=== PATIENT | female | born 1940 | race Caucasian/White ===

== ENCOUNTER 2020-08-13 10:43 | Outpatient (REF) | payer MEDICARE, SELFPAY ==
--- NOTE | 2020-08-13 10:49 | MM_ITS ---
EXAMINATION: BONE DENSITOMETRY CLINICAL INDICATION: Osteoporosis. COMPARISON: Previous BD dated 02/10/2017 and baseline BD dated 05/12/2005. TECHNIQUE: Using a [id number] DXA System (software version: 13.1) manufactured by [employer], dual-energy x-ray absorptiometry was performed of the lumbar spine and left hip. The images are of good technical quality. Summary results are attached. FINDINGS: AP SPINE L1-L4: Current: BMD 1.046 g/cm2, Z-score 1.0, T-score -1.1, osteopenia, 0.3% decrease from previous, 7.9% increase from baseline (<5% change is not significant). Prior: BMD 1.049 g/cm2. Baseline: BMD 0.969 g/cm2. LEFT FEMUR, NECK: Current: BMD 0.786 g/cm2, Z-score 0.4, T-score -1.8, osteopenia. Prior: BMD 0.757 g/cm2. Baseline: BMD 0.757 g/cm2. LEFT FEMUR, TOTAL: Current: BMD 0.782 g/cm2, Z-score 0.3, T-score -1.8, osteopenia, 0.0% change from previous, 3.8% decrease from baseline (<5% change is not significant). Prior: BMD 0.782 g/cm2. Baseline: BMD 0.813 g/cm2. IDENTIFIED RISK FACTORS: Early menopause, height loss, hysterectomy, bilateral oophorectomy. HISTORY OF FRACTURE: None listed. MEDICATIONS: Vitamin D. MM/XR DEXA axial skeleton IMPRESSION: 1. DIAGNOSIS: Osteopenia based on the lowest T-score value of -1.8 in the femur neck and total femur applying World Health Organization criteria. 2. 10-YEAR FRACTURE RISK PREDICTION, FRAX: Major osteoporotic fracture (clinical spine, forearm, hip or shoulder) 12.2%. Hip fracture 3.3%. 3. Treatment Recommendations: NOF guidelines recommend consideration for treatment in postmenopausal women and men age 50 and older presenting with the following: -A hip or vertebral (clinical or morphometric) fracture. -T-score less than or equal to -2.5 at the femoral neck or spine after appropriate evaluation to exclude secondary causes. -Low bone mass at the hip or spine and a 10-year fracture probability by FRAX of greater than or equal to 3% for hip fracture or greater than or equal to 20% for major osteoporotic fracture based on the [place] adapted WHO algorithm. 4. Other Recommendations: All treatment decisions require clinical judgment and consideration of individual patient factors, including patient preferences, comorbidities, previous drug use, risk factors not captured in the FRAX model (e.g. frailty, falls, vitamin D deficiency, increased bone turnover, interval significant decline in bone density) and possible under or overestimation of fracture risk by FRAX. Additional medical evaluation for secondary cause of low bone mineral density may be appropriate. FUTURE SCAN RECOMMENDATION: People with diagnosed cases of osteoporosis or at high risk for fracture should have regular bone mineral density tests. For patients eligible for Medicare, routine testing is allowed once every 2 years. The testing frequency can be increased to one year for patients who have rapidly progressing disease, those who are receiving or discontinuing medical therapy to restore bone mass, or have additional risk factors.
--- NOTE | 2020-08-13 10:49 | MM_ITS ---
EXAMINATION: MM SCREENING DIGITAL BREAST TOMOSYNTHESIS, BILATERAL CLINICAL INFORMATION: Screening. Asymptomatic. The lifetime risk of breast cancer based on the Tyrer-Cuzick Model is under 2%. COMPARISON: Mammography: 07/21/2019, 03/08/2018 TECHNIQUE: Digital breast tomosynthesis is performed in both the craniocaudal and mediolateral oblique views along with computer-aided detection (CAD). Synthesized 2D images are generated from the tomosynthesis. FINDINGS: There are scattered areas of fibroglandular density (ACR BI-RADS breast composition Category b). There are no significant masses, abnormal calcifications, or other abnormalities. There is some fine incidental vascular calcification again seen posterior central left breast as noted previously. The skin contours are smooth. No significant changes. MM/MM tomosynthesis screening BI IMPRESSION: No mammographic evidence of malignancy. ASSESSMENT: BI-RADS 2: Benign RECOMMENDATION: Routine annual mammography screening. This patient's information was entered into a reminder system with a target due date for their next mammogram.
== END 2020-08-13 10:44 | disposition home or self-care (01) ==
LOC: HO.MAMMO 10:43
PROVIDERS: PCP Nurse Practitioner Family; Visit Provider Nurse Practitioner Family
DX: Z12.31 Encounter for screening mammogram for malignant neoplasm of breast (principal); M81.0 Age-related osteoporosis without current pathological fracture; Z78.0 Asymptomatic menopausal state; Z90.710 Acquired absence of both cervix and uterus; Z90.722 Acquired absence of ovaries, bilateral
CPT/HCPCS: 77063; 77067; 77080

== ENCOUNTER 2021-09-03 10:46 | Outpatient (REF) | payer MEDICARE, SELFPAY ==
--- NOTE | ~2021-09-03 | MM_ITS ---
EXAMINATION: MM SCREENING DIGITAL BREAST TOMOSYNTHESIS, BILATERAL CLINICAL INFORMATION: Screening. Asymptomatic. The lifetime risk of breast cancer based on the Tyrer-Cuzick Model is 1.0%. COMPARISON: Mammography: August 13, 2020 and studies dating back to October 23, 2011 TECHNIQUE: Digital breast tomosynthesis is performed in both the craniocaudal and mediolateral oblique views along with computer-aided detection (CAD). Synthesized 2D images are generated from the tomosynthesis. FINDINGS: There are scattered areas of fibroglandular density (ACR BI-RADS breast composition Category b). There are no significant masses, abnormal calcifications, or other abnormalities. MM/MM tomosynthesis screening BI IMPRESSION: There are no significant changes from prior study. ASSESSMENT: BI-RADS 1: Negative RECOMMENDATION: Routine annual mammography screening. This patient's information was entered into a reminder system with a target due date for their next mammogram.
== END 2021-09-03 10:47 | disposition home or self-care (01) ==
LOC: HO.MAMMO 10:46
PROVIDERS: Visit Provider Nurse Practitioner Family
DX: Z12.31 Encounter for screening mammogram for malignant neoplasm of breast (principal)
CPT/HCPCS: 77063; 77067

== ENCOUNTER 2022-06-30 15:49 | Outpatient (REF) | payer MEDICARE, SELFPAY ==
--- NOTE | ~2022-06-30 | XR_ITS ---
EXAMINATION: XR CHEST CLINICAL INFORMATION: Pneumonitis. History of aspiration. COMPARISON: Previous chest x-ray December 2014 TECHNIQUE: 2 views of the chest were obtained. FINDINGS: The cardiac and mediastinal contours are normal. The lungs are clear. There is no pleural effusion or pneumothorax. There are degenerative changes of the spine and mild scoliosis. XR/XR chest 2V IMPRESSION: No evidence of pneumonia.
== END 2022-06-30 15:50 | disposition home or self-care (01) ==
LOC: HO.HMGCX 15:49
PROVIDERS: PCP Nurse Practitioner Family; Visit Provider Internal Medicine
DX: J69.0 Pneumonitis due to inhalation of food and vomit (principal)
CPT/HCPCS: 71046

== ENCOUNTER 2022-10-01 14:07 | Outpatient (REF) | payer MEDICARE, SELFPAY ==
--- NOTE | ~2022-10-01 | MM_ITS ---
EXAMINATION: MM SCREENING DIGITAL BREAST TOMOSYNTHESIS, BILATERAL CLINICAL INFORMATION: Screening. Asymptomatic. The lifetime risk of breast cancer based on the Tyrer-Cuzick Model is 1%. COMPARISON: Mammography: 09/03/2021, 08/13/2020, 07/21/2019 TECHNIQUE: Digital breast tomosynthesis is performed in both the craniocaudal and mediolateral oblique views along with computer-aided detection (CAD). Synthesized 2D images are generated from the tomosynthesis. FINDINGS: There are scattered areas of fibroglandular density (ACR BI-RADS breast composition Category b). There are no significant masses, abnormal calcifications, or other abnormalities. Parenchymal pattern is similar to prior studies. There is no developing density or architectural abnormality. The axilla and skin contours are unremarkable. No significant changes. MM/MM tomosynthesis screening BI IMPRESSION: No mammographic evidence of malignancy. ASSESSMENT: BI-RADS 1: Negative RECOMMENDATION: Routine annual mammography screening. This patient's information was entered into a reminder system with a target due date for their next mammogram.
== END 2022-10-01 14:08 | disposition home or self-care (01) ==
LOC: HO.MAMMO 14:07
PROVIDERS: PCP Nurse Practitioner Family; Visit Provider Nurse Practitioner Family
DX: Z12.31 Encounter for screening mammogram for malignant neoplasm of breast (principal)
CPT/HCPCS: 77063; 77067

== ENCOUNTER 2024-09-05 15:18 | Outpatient (AMB) | payer MEDICARE, SELFPAY ==
[2024-09-05 15:23] VITALS: BP 152/74; PULSE 82; O2SAT 95; BMI 19.9
--- NOTE | 2024-09-05 15:23 | MHC.OFFWIV ---
Intake Vital Signs 09/05/24 15:23 Height 5 ft 7 in Weight 127 lb 4 oz BMI 19.9 BP 152/74 H Blood Pressure Location Rt brachial Position Sitting Pulse 82 Pulse Source Pulse Oximeter Pulse Oximetry (%) 95 Oxygen Delivery Method Room Air Intake Visit Reasons: EP-uti Allergies Iodinated Contrast Media [IVP DYE] Allergy (Unknown, Verified 01/01/23 08:12) HIVES IVP Dye Allergy (Unknown, Uncoded 06/30/22 15:28) Rash IVP dye Allergy (Unknown, Uncoded 06/30/22 15:28) rash, hives HPI EP-uti HPI Details This note is constructed using voice recognition software. While every effort has been made to ensure accuracy, motion picture camera operator errors may have been included. The patient is a 83 year old female who presents to the clinic today with concern for UTI. She notes that last night she started developing some burning with urination, today she started with urinary frequency and urgency. She has had a history of frequent urinary tract infections, which was previously worked with with Urogynecology, and she had a pessary at that time. She has not had a urinary tract she denies any back pain. Review of Systems Const All systems reviewed & are unremarkable except as noted in HPI and below Physical Exam Vital Signs: Last Vital Signs Pulse 82 09/05/24 15:23 BP 152/74 H 09/05/24 15:23 Pulse Ox 95 09/05/24 15:23 Oxygen Delivery Method Room Air 09/05/24 15:23 BMI result Body Mass Index 19.9 Const General: cooperative, healthy appearing, comfortable, no acute distress and alert Orientation/consciousness: patient oriented x3 Limitations: no limitations Resp Effort & Inspection: normal respiratory effort and able to speak in complete sentences Other: Deferred General: Yes no CVA tenderness Back/Spine/Pelvis Back: no CVA tenderness Skin General skin exam: no rashes or lesions noted, elasticity normal and turgor normal Neuro General: patient oriented x3 Psych Appearance: grossly normal Mental Status: mental status grossly normal Speech and movement: Normal speech and movement present Affect: normal affect Results AMB Urinalysis, Automated UA Leukoctes 125 Navi/uL Last Edit by Ramon Garcia CMA on 09/05/24 15:31 UA Nitrite Negative Last Edit by aRmon Garcia CMA on 09/05/24 15:31 UA Urobilinogen 0.2 mg/dL Last Edit by Ramon Garcia CMA on 09/05/24 15:31 UA Protein 0 mg/dL Last Edit by Ramon Garcia CMA on 09/05/24 15:31 UA pH 6.5 Last Edit by Ramon Garcia CMA on 09/05/24 15:31 UA Blood 200 Kenji/uL Last Edit by Ramon Garcia CMA on 09/05/24 15:31 UA Specific [place] 1.010 Last Edit by Ramon Garcia CMA on 09/05/24 15:31 UA Ketone Negative Last Edit by Ramon Garcia CMA on 09/05/24 15:31 UA Bilirubin 0 mg/dL Last Edit by Ramon Garcia CMA on 09/05/24 15:31 UA Glucose 0 mg/dL Last Edit by Ramon Garcia CMA on 09/05/24 15:31 Results Reviewed Results Reviewed: Laboratory Last Values Urine pH (Auto) 6.5 09/05/24 15:31 Specific [place] (Auto) 1.010 09/05/24 15:31 Urine Protein (Auto) 0 mg/dL 09/05/24 15:31 Glucose (UA)(Auto) 0 mg/dL 09/05/24 15:31 Urine Ketones (Auto) Negative 09/05/24 15:31 Urine Blood (Auto) 200 Kenji/uL 09/05/24 15:31 Urine Nitrite (Auto) Negative 09/05/24 15:31 Urine Bilirubin (Auto) 0 mg/dL 09/05/24 15:31 Urine Urobilinogen (Auto) 0.2 mg/dL 09/05/24 15:31 Leukocyte Esterase (Auto) 125 Navi/uL 09/05/24 15:31 Assessment & Plan Assessment & Plan (1) UTI (urinary tract infection): Code(s): N39.0 - Urinary tract infection, site not specified Qualifiers: Urinary tract infection type: acute cystitis Hematuria presence: without hematuria Qualified Code(s): N30.00 - Acute cystitis without hematuria Plan: Supportive measures encouraged and reviewed. Antibiotic sent to requested pharmacy, advised patient to take antibiotics until completed and not to stop if feeling better, unless the patient has side effects. Advised patient to follow up with primary care provider with worsening or failure to resolve. Plan See above for full details and plan. Orders: Orders AMB Urinalysis Automated Today Steffany Cole PA-C Z13.9 - Encounter for screening, unspecified Medications: New nitrofurantoin monohyd/m-cryst 100 mg must administer with a meal/food 100 mg PO Q12H 5 days 10 caps 0RF Stella Rodarte NP Coding Level of Care Code Est Pt Level 3 (25034) Diagnoses Acute cystitis without hematuria N30.00 Urinary tract infection type: acute cystitis Hematuria presence: without hematuria
--- OUTSIDE RECORDS SUMMARY | 2024-09-07 16:19 | XMS_ITS ---
Author Organization [facility] Address [address] [place] [address] Care Team Providers Care Grey Stock Recorder Name Role Phone Nena Wong NP Primary Care Provider Divina Guajardo [phone] REASON FOR VISIT CREDIT REPORTER [facility]WK Entered Encounters Encounter Location Date Provider Diagnosis [facility] [address] [place] [address] 08/03/2023 Divina Desouza Plan Of Treatment No Information Progress Notes * Rashaun CARYOB:1940 (82 yo F)Acc No.[id number]:08/03/2023 Patient:?Poly Cary :1940???Age:82 Y???Sex:Female Address:[address] [place] [id number] * true * Date:? Generated for Printi ng/Faxing/eTransmitting on:?09/07/2024 04:19 PM EST
--- OUTSIDE RECORDS SUMMARY | 2024-09-07 16:19 | XMS_ITS ---
Author Organization [facility] Elise lai [place] Address [address] [place] [address] Care Team Providers Care Suggestion Clerk Name Role Phone Nena Wong NP Primary Care Provider Divina Guajardo Unavailable [phone] Allergies Allergen (clinical drug ingredient) Drug/Non Drug Allergy documented on EMR Reaction Allergy Type Onset Date Status Iodine hives Drug Allergy Active REASON FOR VISIT PCP - 01/2023, Painful Toe(s) Medications Medication SIG (Take, Route, Frequency, Duration) Notes Start Date End Date Status Levothyroxine Sodium 88 MCG Oral for 90 Days Active Losartan Potassium 25 MG Oral for 30 Days Active Vitamin D3 08/03/2023 Active Centrum - as directed Orally 08/03/2023 Active Surfak 08/03/2023 Active Social History Tobacco Use: Social History Observation Description Date Details (start date - stop date) Former Smoker NA - NA Tobacco Use/Smoking Question Answer Notes Are you a: former smoker Additional Findings: Tobacco Non-User Current no n-smoker Alcohol Screen Question Answer Notes Did you have a drink contain ing alcohol in the past year? Yes How often did you have a dri nk containing alcohol in the past year? 2 to 3 times a week (3 points) Points 3 Interpretation Positive Tobacco use other than smoking: Question Answer Notes Are you an other tobacco user? No Problems Problem Type SNOMED Code ICD Code Onset Dates Problem Status W/U Status Risk Notes Problem [id number] Hammer toe of right foot (M20.41) Active confirmed Vital Signs Height 5 ft 5 in in 08/25/2023 Weight 123 lbs 08/25/2023 BMI 20.47 kg/m2 08/25/2023 Encounters Encounter Location Date Provider Diagnosis [facility] [address] [place] [address] 08/25/2023 Divina Desouza Hammer toe of right foot M20.41 ; Toe pain, right M79.674 and Markle of toe L84 Assessments Encounter Date Diagnosis (ICD Code) Assessment Notes Treatment Notes Treatment Clinical Notes Section Notes 08/25/2023 Hammer toe of right foot (ICD-10 - M20.41) 08/25/2023 Toe pain, right (ICD-10 - M79.674) 08/25/2023 Markle of toe (ICD-10 - L84) Plan Of Treatment Pending Test Test Name Order Date X ray : Foot, right 3V 08/25/2023 Next Appt Details Follow Up: prn, Reason: Procedure Notes * Category Sub-Category Detail Notes Keratoma Treatment Parring or Cutting o f Benign Hyperkeratotic Lesion(s) ( 1 Lesion ) - The Benign hyperkeratotic lesion, as described above was pared, and/or cut utilizing a sterile 15 blade, tissue nippers, and/or dremel Progress Notes * Poly CARY RDOB:[birth year] (82 yo F)Acc No.[id number]:08/25/2023 Progress Notes Patient:?Poly Cary Provider:?Divina Desouza DPM :1940???Age:82 Y???Sex:Female D ate:08/25/2023 Address:[address] [place], [place] [id number] Pcp:Nena Wong NP Subjective: * Chief Complaints: * ???PCP - ainful Toe( s) * HPI: ???Toe pain:?Nature:?tenderness.?Location:?Right foot 5th toe.?Duration:?several months.?Course:?worse.?Aggrevated by:?any pressure, shoes.?Treatments:?change in shoes bracing/splinting/padding.? * ROS:?General/Constitutional:?Nausea?denies.?Vomiting?denies.?Hunger Thirst?denies.?Loss appetite?denies.?Chills?denies.?Fatigue?denies.?Fever?denies.?Night Sweats?denies.?Unexplained weight loss?denies.?Unexplained weight gain?denies.?HEENTM:?Dentures?admits.?Dizziness?denies.?Glasses/contacts?admits.?Retinopathy?de nies.?Blurred/double vision?denies.?TMJ?denies.?Discharge/drainage?denies.?Implants?denies.?Sore throat?denies.?Dental implants?denies.?Hard of hearing ?denies.?Difficulty chewing/swallowing/speaking?denies.?Nose bleeds?denies.?Sore mouth?denies.?Respiratory:?On Oxygen?denies.?Pneumonia/pleurisy?denies.?Bronchitis?admits.?Emphysema?denies.?C oughing?denies.?Cough blood?denies.?Shortness of breath?denies.?Wheezing?denies.?Cardiovascular:?Pacemaker?denies.?MVP?denies.?WPW?denies.?CHF?denies.?Heart attack?denies.?Septal defect?denies.?Rapid beat?denies.?Chest pain ?denies.?Atrial Fib.?denies.?Murmur/Palpitations?denies.?Gastrointestinal:?Hemorrhoids?denies.?Stomach/Abdominal pain?denies.?Dark blood stool?denies.?Irritable bowel ?denies.?Constipation?denies.?Diarrhea?denies.?Hematology:?Swelling?denies.?Clots?denies.?Varicose Veins?denies.?Bruising?denies.?Bleeding problem?denies.?Genitourinary:?Blood urine?denies.?Frequent/Painfu/urination/bladder control?denies.?Kidney stones?denies.?Infection (UTI)?denies.?Nephropathy?denies.?sex trans dis (STD)?denies.?Prostate?denies.?Musculoskeletal:?Hammertoes?denies.?Bunions?denies.?Back Pain?denies.?Muscle Cramps/ Resting?denies.?Muscle cramps / walking?denies.?Generalized aches and pains?denies.?Weakness?denies.?Integ.:?Recinos?denies.?Scars?denies.?Corns/calluses?admits.?Ingrown nails?denies.?Painful nails?denies.?Open Sores?denies.?Rashes?denies.?Neurologic:?Difficulty sleeping?denies.?Brain disorder?denies.?Numbness?denies.?Balance trouble?denies.?Confusion?denies.?Fainting/blackouts?denies.?Tingling?denies.?Tr emors?denies.? * Medical History:? * Surgical History:? 1972appendectomy 1974oopherectomy 1974hysterectomy, total 1979hemorrhoidectomy 1997cataract surgery 2021 * Hospitalization/Major Diagno stic Procedure:?Denies Past Hospitalization * Family History:?Mother: dece ased.?Father: , diagnosed with Unspecified heart disease.?Maternal Grand Father: diagnosed with Other malignant neoplasm of unspecified site.? * Social History:?Tobacco Use:?Tobacco Use/Smoking?Are you a:?former smoker ?Additional Findings: Tobacco Non-User?Current non-smoker ?Tobacco use other than smoking?Are you an other tobacco user??No ???Drugs/Alcohol:?Drugs?Have you used drugs other than those for medical reasons in the past 12 months??No ?Alcohol Screen?Did you have a drink containing alcohol in the past year??Yes ?How often did you have a drink containing alcohol in the past year??2 to 3 times a week (3 points) ?Points?3 ?Interpretation?Positive ???Miscellaneous:?Caffeine: yes. ?Children: yes, 3. ?Exercise: yes, aerobics, walking, golf. ?Marital status: . 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 * Medications:?TakingLevothyro xine Sodium 88 MCG Tablet Oral Losartan Potassium 25 MG Tablet Oral Vitamin D3 Centrum - Liquid as directed Orally Surfak Medication List reviewed and reconciled with the patientTaking Levothyroxine Sodium 88 MCG Tablet Oral Taking Losartan Potassium 25 MG Tablet Oral Taking Vitamin D3 Taking Centrum - Liquid as directed Orally Taking Surfak Medication List reviewed and reconciled with the patient * Allergies:?Iodine: hivesyes[ Allergies Verified] Objective: * Vitals:?Ht: 5 ft 5 in, Wt: 1 23, BMI: 20.47, Shoe size: 9, Ht-cm: 165.1 cm, Wt- k.79 kg. * Examination: ???General Examination: ?GENERAL APPEARANCE:?Reveals a pleasant, alert, well-nourished, well- developed, well hydrated individual, who demonstrates proper attention to hygiene/body habitus, and is in no acute distress, Pt serves as own?historian for office visit today.?ORIENTED:?person, place, and time.?Neurological: ?SENSORY:?Neurological exam reveals intact sensorium, pain sensation normal, vibration sensation intact, pinprick sensation is normal in the lower extremities, Pt denies, anesthesia, burning, paresthesia, tingling, B/L.?DEEP TENDON REFLEXES:?Achilles, 2/4, B/L.?Vascular: ?DP PULSES:?3/4, B/L.?PT PULSES:?3/4, B/L.?CAPILLARY FILL TIME:?immediate, all digits, B/L.?SKIN TEMPERTURE GRADIENT OF THE LOWER EXTERMITIES:?warm to cool, proximal to distal, B/L.?HAIR GROWTH/TEXTURE/ELASTICITY/TURGOR:?normal, B/L.?PIGMENTATION:?normal, B/L.?EDEMA:?absent, B/L.?Dermatologic: ?SKIN FINDINGS:? Skin exam reveals Keratotic lesion(s) located at Medial DIPJ T9.?Orthopedic: ?MUSCLE STRENGTH:?5/5 all groups in a symmetrical fashion , B/L.?DIGITAL DEFORMITIES:? Digital contracture, PIPJ, 2-5 B/L, incompl- reducible with WB, or to push-up test, no over, nor underlapping Adducto-varus deformity noted T9.?FOOTWEAR:? shoe gear properties exacerbate patients foot/toe deformity.?X-Rays - IMAGING REPORT: ?Clinical Indication(s):? Evaluate Biomechanical Deformity.?Views:? 3 views of Foot, AP, LO, MO, RIGHT.?Findings:? normal bone and soft tissue density consistent for patients age and sex.?Digits:? show asymmetrical joint space narrowing at the PIPJ consistent with clinical finding of hammertoe deformity.?Fracture:? Negative fractures identified.? Assessment: * Assessment: 1.?Hammer toe of right foot - M20.41 (Primary), Dx New problem, Prognosis Uncertain (4)?2.?Toe pain, right - M79.674?3.?Markle of toe - L84? Plan: * Treatment: * Procedures:?Keratoma Treatment:?Parring or Cutting of Benign Hyperkeratotic Lesion(s)?( 1 Lesion ) - The Benign hyperkeratotic lesion, as described above was pared, and/or cut utilizing a sterile 15 blade, tissue nippers, and/or dremel.? * Imaging:? * ?Imaging: X ray : Foot, right 3V * Procedure Codes:?24139 X-RAY EXAM OF RIGHT FOOT 3V, Modifiers: 26 , RT * Preventive Medicine:? ??Counseling:?Discussion:?-04: Office or other outpatient visit for the evaluation and management of a new patient, which required a medically appropriate history and/or examination and MODERATE level of DECISION MAKING for: 1 OR MORE CHRONIC PROBLEM(S) THATS WORSENING, 2 STABLE CHRONIC PROBLEMS, A NEWLY DIAGNOSED PROBLEM WITH UNCERTAIN PROGNOSIS, AN ACUTE COMPLICATED INJURY WITH MULTIPLE TREATMENT OPTIONS, OR AN ACUTE PROBLEM WITH ACCOMPANYING SYSTEMIC SYMPTOMS, THAT POSE(S) A MODERATE RISK OF MORBIDITY. THIS CONDITION MAY ALSO INCLUDE RX DRUG MANAGEMENT, OR A DECISON FOR MINOR SURGERY. The visit on the day of the encounter encompassed interpreting the data and educating the patient as to the nature of their condition, treatment options available according to their individual PMH, meds, allergies, and overall health/living conditions, as well as any potential risks or complications that may occur from a failure to adhere to, and participate in, the recommended course of therapy. The discussion included a complete verbal, and/or written explanation of the examination results, any x-rays taken, the proposed diagnosis, and outline of the treatment plan. A schedule for future care needs was also explained. The patient verbalized an understanding of the instructions at this time and agreed to be an active participant in their treatment. If the patient should think of any questions or concerns after the visit, I have encouraged the patient to call the office.?Digital Surgery:?Digital surgery was discussed with the patient, including the risks of surgery(below), vs not having surgery (persistent pain, deformity, risk for skin ulceration/infection, loss of toe), the potential surg complications, the anesthesia, and the usual post-op course. No guarentees were given. We discussed the potential procedure complications including, but not limited to: pain, swelling, bleeding, scarring, numbness, infection, delayed/non healing, floppy/unstable/shorthened toe, recurrence, failure of the procedure, overcorrection leading to plantarflexed/downward positioned toe, recurrence, need for further surgery, as well as the possibility for loss of the toe itself. We discussed the use of local anesthesia, and the usual post-op course for healing. No guarentees were given. The patient verbally indicated a full understanding of the above conversation, and any other of their questions were answered to their satisfaction. Alternatives to the procedure were also discussed, including conservative care. I also discussed the usual post-operative course and gave no guarantees regarding outcome.?Digital Treatment:?HT- I explained to the patient the possible etiologies of Hammertoes, including genetics/foot type/shoegear/activity level/exercise routine and the risks/benefits of all the different treatment options for their pain including: No treatment at all, Rest, Ice, New/supportive/wider/deeper Shoegear, Digital Padding/Strapping/Taping/Bracing/Gel protective sleeves, Foot/Ankle AFO Bracing, Stretching exercises, Deep Tissue Massage, Arch support/shoe inserts with splay metatarsal padding, and Custom orthoses. I insisted that any digital devices be removed daily and not worn overnight for safety. The patient is to carefully examine the toes daily for any skin irritation while using any splinting or padding device. The advantages and disadvantages of each option were discussed and the patients questions re: shoegear, padding, custom vs prefabricated inserts, activity level, and consistency in home treatment regimens for optimal success were answered to their verbally confirmed satisfaction.?Shoe Gear Counseling:?The patient and I reviewed the types of shoes they should be wearing. My recommendation included obtaining a well-fitted shoe with a good supportive, non-foldable nor twistable sole, plenty of toe/room for the forefoot, and proper arch support. Based on todays examination, I recommended the patient look for new shoes, by having their feet professionally measured. We discussed that generally the best time of the day for a shoe fitting is the afternoon. Different shoes types and brands to best match the patients occupation and vocation were discussed. Specific brand selection will be up to the patient, their individual foot condition/deformities, and fit. The patient and I reviewed the standard new shoe break in period by wearing them for a few hours a day while checking for redness or sores as wear time is increased. The patient verbally confirmed to understanding the information discussed.?X-rays:?Discussed and reviewed the X-rays with the patient. We discussed how the findings relate to the patients symptoms/complaints. Answered any and all questions..? * Follow Up:?prn * Images: * Sign off status: Completed true * Provider:?Divina Desouza DPM Date:? Generated for Grace vela/Quincy/Iraj on:?09/07/2024 04:18 PM EST History and Physical Notes * HPI (History of Present Illness) Category Sub-Category Detail Notes Category Not es Toe pain Nature: tenderness Location: Right foot 5th toe Duration: several months Course: worse Aggravated by: any pressure, shoes Treatments: change in shoes brac ing/splinting/padding Examination Category Sub-Category Detail Notes Category Not es Neurological SENSORY: Neurological exa m reveals intact sensorium, pain sensation normal, vibration sensation intact, pinprick sensation is normal in the lower extremities, Pt denies, anesthesia, burning, paresthesia, tingling, B/L DEEP TENDON REFLEXES: Achilles, 2/4, B/L Dermatologic SKIN FINDINGS: Skin exam reveal s Keratotic lesion(s) located at Medial DIPJ T9 Orthopedic FOOTWEAR: shoe gear proper ties exacerbate patients foot/toe deformity DIGITAL DEFORMITIES: Digital contracture , PIPJ, 2-5 B/L, incompl-reducible with WB, or to push-up test, no over, nor underlapping Adducto-varus deformity noted T9 MUSCLE STRENGTH: 5/5 all groups in a symmetrical fashion , B/L General Examination GENERAL APPEARANCE: Reveals a pleasant, alert, well- nourished, well-developed, well hydrated individual, who demonstrates proper attention to hygiene/body habitus, and is in no acute distress, Pt serves as own historian for office visit today ORIENTED: person, place, and t shannan Vascular DP PULSES(B): 3/4, B/L PT PULSES(B): 3/4, B/L CAPILLARY FILL TIME: immediate, all digi ts, B/L TEMPERTURE GRADIENT(C): warm to cool, pr oximal to distal, B/L TROPHIC CONDITION-TEXTURE/ELASTICITY/TURGOR/HAIR GROWTH(B): normal, B/L EDEMA(C): absent, B/L PIGMENTATION: normal, B/L X-Rays - IMAGING REPORT Findings: normal b one and soft tissue density consistent for patients age and sex Fracture: Negative fractures i dentified Digits: show asymmetrical naila int space narrowing at the PIPJ consistent with clinical finding of hammertoe deformity Views: 3 views of Foot, AP, LO, MO, RIGHT Clinical Indication(s): Evaluate Biomech anical Deformity
--- OUTSIDE RECORDS SUMMARY | 2024-09-07 16:19 | XMS_ITS | Patient Health Record ---
Author Organization [facility] Elise lai [place] Address [address] [place] [address] Care Team Providers Care Machine Builder Name Role Phone Nena Wong NP Primary Care Provider Divina Guajardo Unavailable [phone] Allergies Allergen (clinical drug ingredient) Drug/Non Drug Allergy documented on EMR Reaction Allergy Type Onset Date Status Iodine hives Drug Allergy Active Reason For Referral No Information Medications Medication SIG (Take, Route, Frequency, Duration) [...] Problem Status W/U Status Risk Notes Problem [id number] Hammer toe of right foot (M20.41) Active confirmed Plan Of Treatment Pending Test Test Name Order Date X ray : Foot, right 3V 08/25/2023 Insurance Providers Payer Name Payer Address Payer Phone Subscriber Number Group Number Insured Name Patient Relationship to Insured Coverage Start Date Coverage End Date Medicare National Gov[employer] [address] [place] [address] [id number] Poly Cary Self - patient is the insured [employer] [address] [place] [address] [id number] Poly Cary Self - patient is the insured Medical (General) History Medical History History ICD Code Cataracts covid-19 High blood pressure thyroid Measles Chicken pox Transfusions Surgical History Surgery Date(Month/Year) 1971 appendectomy 1973 oopherectomy 1973 hysterectomy, total 1978 hemorrhoidectomy 1997 cataract surgery 2021
== END 2024-09-05 15:55 | disposition home or self-care (01) ==
PROVIDERS: Visit Provider Registered Nurse
DX: Z13.9 Encounter for screening, unspecified (principal); N30.00 Acute cystitis without hematuria

== ENCOUNTER 2024-09-09 11:39 | Outpatient (AMB) | payer MEDICARE, SELFPAY ==
--- OUTSIDE RECORDS SUMMARY | 2024-09-09 11:42 | XMS_ITS ---
Author Organization [facility] Address [address] [place] [address] Care Team Providers Care Onion Tier Name Role Phone Nena Wong NP Primary Care Provider Divina Guajardo [phone] REASON FOR VISIT QUARTZ MINER BLASTING PPWK Entered Encounters Encounter Location Date Provider Diagnosis [facility] [address] [place] [address] 08/03/2023 Divina Desouza Plan Of Treatment No Information Progress Notes * Rashaun CARYOB:1940 (82 yo F)Acc No.[id number]:08/03/2023 Patient:?Poly Cary :1940???Age:82 Y???Sex:Female Address:[address] [place] [address] * true * Date:? Generated for Printi ng/Faxing/eTransmitting on:?09/09/2024 11:42 AM EST
--- OUTSIDE RECORDS SUMMARY | 2024-09-09 11:42 | XMS_ITS ---
Author Organization [facility] [place] Address [address] [place] [address] Care Team Providers Care Communication Instructor Name Role Phone Nena Wong NP Primary Care Provider Divina Guajardo Unavailable [phone] Allergies Allergen (clinical drug ingredient) Drug/Non Drug [...] Problem Status W/U Status Risk Notes Problem [id number] Hammer toe of right foot (M20.41) Active confirmed Vital Signs Height 5 ft 5 in in 08/25/2023 Weight 123 lbs 08/25/2023 BMI 20.47 kg/m2 08/25/2023 Encounters Encounter Location Date Provider Diagnosis [facility] [place] [address] [place] [address] 08/25/2023 Divina Desouza Hammer toe of right foot M20.41 ; Toe pain, right M79.674 and [place] of toe L84 Assessments Encounter Date Diagnosis (ICD Code) Assessment Notes Treatment Notes Treatment Clinical Notes Section Notes 08/25/2023 Hammer toe of right foot (ICD-10 - M20.41) 08/25/2023 Toe pain, right (ICD-10 - M79.674) 08/25/2023 [place] of toe (ICD-10 - L84) Plan Of [...] Poly CARY RDOB:[birth year] (82 yo F)Acc No.[id number]:08/25/2023 Progress Notes Patient:?Poly Cary Provider:?Divina Desouza DPM :1940???Age:82 Y???Sex:Female D ate:08/25/2023 Address:[address] [place], [place] [id number] Pcp:Nena Wong NP Subjective: * Chief Complaints: [...] problem, Prognosis Uncertain (4)?2.?Toe pain, right - M79.674?3.?[place] of toe - L84? Plan: * Treatment: * Procedures:?Keratoma Treatment:?Parring or Cutting of Benign Hyperkeratotic Lesion(s)?( 1 Lesion ) - The Benign hyperkeratotic lesion, as described above was pared, and/or cut utilizing a sterile 15 blade, tissue nippers, and/or dremel.? * Imaging:? * ?Imaging: X ray : Foot, right 3V * Procedure Codes:?76306 X-RAY EXAM OF RIGHT FOOT 3V, Modifiers: [...] Desouza DPM Date:? Generated for Grace vela/Quincy/Iraj on:?09/09/2024 11:42 AM EST History and Physical Notes * HPI [...]
--- OUTSIDE RECORDS SUMMARY | 2024-09-09 11:43 | XMS_ITS | Patient Health Record ---
Author Organization [facility] Elise lai LiraJ[place] Address [address] [place] [address] Care Team Providers Care Steward/Stewardess Third Class Name Role Phone Nena Wong NP Primary Care Provider Divina Guajardo Unavailable [phone] Allergies Allergen (clinical drug ingredient) Drug/Non Drug [...] Problem Status W/U Status Risk Notes Problem [id number] Hammer toe of right foot (M20.41) Active confirmed Plan Of Treatment Pending Test Test Name Order Date X ray : Foot, right 3V 08/25/2023 Insurance Providers Payer Name Payer Address Payer Phone Subscriber Number Group Number Insured Name Patient Relationship to Insured Coverage Start Date Coverage End Date Medicare National Govt Sv[employer] [address] [place] [address] [id number] Poly Cary Self - patient is the insured [employer] [address] [place] [address] [id number] Poly Cary Self - patient is the insured Medical (General) History Medical History History ICD Code Cataracts covid-19 High blood pressure thyroid Measles Chicken pox Transfusions Surgical History Surgery Date(Month/Year) 1971 appendectomy 1973 oopherectomy 1973 hysterectomy, total 1978 hemorrhoidectomy 1997 cataract surgery 2021
--- NOTE | 2024-09-09 11:44 | AM.OFFWIN_ITS ---
Intake Vital Signs 09/09/24 11:46 Weight 127 lb BP 138/90 H Blood Pressure Location Lt brachial Position Sitting Pulse 84 Pulse Source Pulse Oximeter Temp 97.6 F Temp Source Oral Pulse Oximetry (%) 94 Oxygen Delivery Method Room Air Intake Visit Reasons: EP-uti Intake Note: Patient here because she is still having burning when urinating since thursday, she was put on nitro and has one more pill left and is feeling 90% better. Patient Tobacco Use Status: Never used Tobacco Allergies Iodinated Contrast Media [IVP DYE] Allergy (Unknown, Verified 09/09/24 11:45) HIVES IVP Dye Allergy (Unknown, Uncoded 09/09/24 11:45) Rash IVP dye Allergy (Unknown, Uncoded 09/09/24 11:45) rash, hives Do you need a note to return to daycare/school/sports/work: No HPI HPI Comments History of Present Illness Details History of Present Illness The patient is an 83-year-old female presenting with symptoms consistent with a urinary tract infection. She reports a significant improvement, approximately 90%, with the current antibiotic regimen of nitrofurantoin, although she continues to experience a notable burning sensation. She denies urinary frequency, urgency, or incontinence. Her urinary symptoms have persisted despite current treatment, prompting concern about its adequacy. Her previous urine culture showed over 100,000 colony-forming units of Escherichia coli, yet the current antibiotic choice, nitrofurantoin, is not the optimal therapy based on sensitivity profiles. She also has a history of hemorrhoids, managed surgically, and takes care with hygiene practices using a bidet. The patient is concerned about a recurrence over the weekend as she is nearing the end of her prescription. Physical Exam General: Cooperative, healthy appearing, comfortable, no acute distress and well developed Orientation: Patient oriented x3 Limitations: No limitations Head: Normal to inspection Ears: Hearing grossly normal bilaterally Nose: Normal external nose present Face and sinus: Normal facial exam Eyes: Appearance normal, both eyes and all related structures Neck: Normal visual inspection and Yes full ROM Respiratory: Normal respiratory effort and able to speak in complete sentences. Skin: No rashes or lesions noted Neuro: Patient oriented x3 Extremities: Normal to inspection [facility] Social History Patient Tobacco Use Status: Never used Tobacco Physical Exam Vital Signs: Last Vital Signs Temp 97.6 F 09/09/24 11:46 Pulse 84 09/09/24 11:46 BP 138/90 H 09/09/24 11:46 Pulse Ox 94 09/09/24 11:46 Oxygen Delivery Method Room Air 09/09/24 11:46 Results AMB Urinalysis, Automated UA Leukoctes 70 Navi/uL Last Edit by Ramon Garcia CMA on 09/09/24 12:04 UA Nitrite Positive Last Edit by Ramon Garcia CMA on 09/09/24 12:04 UA Urobilinogen 1 mg/dL Last Edit by Ramon Garcia CMA on 09/09/24 12:0 4 UA Protein 0 mg/dL Last Edit by Ramon Garcia CMA on 09/09/24 12:04 UA pH 6.0 Last Edit by Ramon Garcia CMA on 09/09/24 12:04 UA Blood 80 Kenji/uL Last Edit by Ramon Garcia CMA on 09/09/24 12:04 UA Specific [place] 1.015 Last Edit by Ramon Garcia CMA on 09/09/24 12:04 UA Ketone Negative Last Edit by Ramon Garcia CMA on 09/09/24 12:04 UA Bilirubin 1 mg/dL Last Edit by Ramon Garcia CMA on 09/09/24 12:04 UA Glucose 0 mg/dL Last Edit by Ramon Garcia CMA on 09/09/24 12:04 Results Reviewed Results Reviewed: Laboratory Last Values Urine pH (Auto) 6.0 09/09/24 12:03 Specific [place] (Auto) 1.015 09/09/24 12:03 Urine Protein (Auto) 0 mg/dL 09/09/24 12:03 Glucose (UA)(Auto) 0 mg/dL 09/09/24 12:03 Urine Ketones (Auto) Negative 09/09/24 12:03 Urine Blood (Auto) 80 Kenji/uL 09/09/24 12:03 Urine Nitrite (Auto) Positive 09/09/24 12:03 Urine Bilirubin (Auto) 1 mg/dL 09/09/24 12:03 Urine Urobilinogen (Auto) 1 mg/dL 12/13/24 12:03 Leukocyte Esterase (Auto) 70 Navi/uL 09/09/24 12:03 Assessment & Plan Assessment & Plan (1) UTI (urinary tract infection): Code(s): N39.0 - Urinary tract infection, site not specified Qualifiers: Urinary tract infection type: acute cystitis Hematuria presence: with hematuria Qualified Code(s): N30.01 - Acute cystitis with hematuria Plan: Plan - UA 1+ leuk est, + nitrites and 2+ blood. - Prescribed an additional five-day course of nitrofurantoin, advising continuation only if symptoms persist beyond two to three days, not exceeding seven days in total usage. - Discussed alternative antibiotics, noting nitrofurantoin remains appropriate d ue to sensitivity despite its lower ranking on sensitivity testing. - Reassurance given based on symptom improvement and therapeutic plan. Further cultures may not be pursued unless symptoms worsening or recurrence. - Patient counseled on completing two to three additional days of current antibiotic therapy and reserves for extended use if necessary. Patient was informed and verbally consented to the use of an ambient scribe for clinic note documentation during this visit. Orders: Orders AMB Urinalysis Automated Today Z13.9 - Encounter for screening, unspecified Medications: New nitrofurantoin monohyd/m-cryst 100 mg (Macrobid) must administer with a meal/food 100 mg PO Q12H 10 caps 0RF 5 days Coding Level of Care Code Est Pt Level 3 (32679) Diagnoses Acute cystitis with hematuria N30.01 Urinary tract infection type: acute cystitis Hematuria presence: with hematuria
[2024-09-09 11:46] VITALS: BP 138/90; PULSE 84; TEMP 36.4; O2SAT 94
== END 2024-09-09 12:30 | disposition home or self-care (01) ==
PROVIDERS: Visit Provider Physician Assistant
DX: N30.01 Acute cystitis with hematuria (principal); Z13.9 Encounter for screening, unspecified

== ENCOUNTER → 2024-09-09 11:39 | Outpatient (BNVA) | payer MEDICARE, SELFPAY | PROVIDERS: Visit Provider Physician Assistant | DX: N30.01 Acute cystitis with hematuria (principal) | CPT/HCPCS: 81003; 99212 ==

== ENCOUNTER 2024-09-27 08:02 | Outpatient (AMB) | payer MEDICARE, SELFPAY ==
--- OUTSIDE RECORDS SUMMARY | 2024-09-27 08:03 | XMS_ITS ---
Author Organization [facility] Address [address] [place] [address] Care Team Providers Care Delineator Name Role Phone Nena Wong NP Primary Care Provider Divina Guajardo [phone] REASON FOR VISIT TEST TECH PPWK Entered Encounters Encounter Location Date Provider [facility] [address] [place] [address] 08/03/2023 Divina Desouza Plan Of Treatment No Information Progress Notes * Rashaun CARYOB:1940 (82 yo F)Acc No.[id number]:08/03/2023 Patient:?Poly Cary :1940???Age:82 Y???Sex:Female Address:[address] [place] [address] * true * Date:? Generated for Printi ng/Faxing/eTransmitting on:?09/27/2024 08:03 AM EST
--- OUTSIDE RECORDS SUMMARY | 2024-09-27 08:03 | XMS_ITS | Patient Health Record ---
Author Organization [facility] Elise lai LiraJey Address [address] [place] [address] Care Team Providers Care Mobility Architect Manager Name Role Phone Nena Wong NP Primary Care Provider Divina Guajardo Unavailable [phone] Allergies Allergen (clinical drug ingredient) Drug/Non Drug [...] Problem Status W/U Status Risk Notes Problem [id number] Hammer toe of right foot (M20.41) Active confirmed Plan Of Treatment Pending Test Test Name Order Date X ray : Foot, right 3V 08/25/2023 Insurance Providers Payer Name Payer Address Payer Phone Subscriber Number Group Number Insured Name Patient Relationship to Insured Coverage Start Date Coverage End Date Medicare National Govt Svcs Inc [address] [place] [address] [id number] Poly Cary Self - patient is the insured [employer] [address] [place] [address] [phone] [id number] Poly Cary Self - patient is the insured Medical (General) History Medical History History ICD Code Cataracts covid-19 High blood pressure thyroid Measles Chicken pox Transfusions Surgical History Surgery Date(Month/Year) 1971 appendectomy 1973 oopherectomy 1973 hysterectomy, total 1978 hemorrhoidectomy 1997 cataract surgery 2021
--- OUTSIDE RECORDS SUMMARY | 2024-09-27 08:03 | XMS_ITS ---
Author Organization [facility]i [facility] Address [address] [place] [address] Care Team Providers Care Dump Truck Driver Off Highway Name Role Phone Nena Wong NP Primary Care Provider Divina Guajardo Unavailable [phone] Allergies Allergen (clinical drug ingredient) Drug/Non Drug [...] Problem Status W/U Status Risk Notes Problem [id number] Hammer toe of right foot (M20.41) Active confirmed Vital Signs Height 5 ft 5 in in 08/25/2023 Weight 123 lbs 08/25/2023 BMI 20.47 kg/m2 08/25/2023 Encounters Encounter Location Date Provider Diagnosis [facility] [address] [place] [address] 08/25/2023 Divina Desouza Hammer toe of right foot M20.41 ; Toe pain, right M79.674 and [place] of toe L84 Assessments Encounter Date Diagnosis (ICD Code) Assessment Notes Treatment Notes Treatment Clinical Notes Section Notes 08/25/2023 Hammer toe of right foot (ICD-10 - M20.41) 08/25/2023 Toe pain, right (ICD-10 - M79.674) 08/25/2023 [place] of toe (ICD-10 - L84) Plan Of [...] Poly CARY RDOB:[birth year] (82 yo F)Acc No.[id number]:08/25/2023 Progress Notes Patient:?Poly Cary Provider:?Divina Desouza DPM :1940???Age:82 Y???Sex:Female D ate:08/25/2023 Address:[address] [place], [place] [id number] Pcp:Nena Wong NP Subjective: * Chief Complaints: [...] problem, Prognosis Uncertain (4)?2.?Toe pain, right - M79.674?3.?[place] of toe - L84? Plan: * Treatment: * Procedures:?Keratoma Treatment:?Parring or Cutting of Benign Hyperkeratotic Lesion(s)?( 1 Lesion ) - The Benign hyperkeratotic lesion, as described above was pared, and/or cut utilizing a sterile 15 blade, tissue nippers, and/or dremel.? * Imaging:? * ?Imaging: X ray : Foot, right 3V * Procedure Codes:?20201 X-RAY EXAM OF RIGHT FOOT 3V, Modifiers: [...] Desouza DPM Date:? Generated for Grace vela/Quincy/Iraj on:?09/27/2024 08:03 AM EST History and Physical Notes * [...] person, place, and t shannan V[facility] DP PULSES (B): 3/4, B/L PT PULSES (B): 3/4, B/L CAPILLARY FILL TIME: immediate, all digi ts, B/L TEMPERTURE GRADIENT (C): warm to cool, p roximal to distal, B/L TROPHIC CONDITION-TEXTURE/ELASTICITY/TURGOR/HAIR GROWTH (B): normal, B/L EDEMA (C): absent, B/L PIGMENTATION: normal, B/L X-Rays - [...]
[2024-09-27 08:09] VITALS: BP 130/100; PULSE 78; TEMP 36.7; O2SAT 98
--- NOTE | 2024-09-27 08:09 | AM.OFFWIN_ITS ---
Intake Vital Signs 09/27/24 08:09 Weight 125 lb 7 oz BP 130/100 H Blood Pressure Location Lt brachial Position Sitting Pulse 78 Pulse Source Pulse Oximeter Temp 98.0 F Temp Source Oral Pulse Oximetry (%) 98 Oxygen Delivery Method Room Air Intake Visit Reasons: EP-severe cough Intake Note: Patient here for cough that has been present for about 5 days and UTI that has not gone away. Patient Tobacco Use Status: Never used Tobacco Allergies Iodinated Contrast Media [IVP DYE] Allergy (Unknown, Verified 09/27/24 08:16) HIVES IVP Dye Allergy (Unknown, Uncoded 09/27/24 08:16) Rash IVP dye Allergy (Unknown, Uncoded 09/27/24 08:16) rash, hives Do you need a note to return to daycare/school/sports/work: No HPI HPI Comments History of Present Illness Details This is an 83-year-old female with a past medical history of hypertension and hypothyroidism presenting for evaluation of a cough that she has had for the past 5 days which is worse at nighttime. Patient also has been seen twice in August for management of an acute urinary tract infection and has taken Macrobid x5 days over 2 courses. Patient states that this area has returned however her urinary frequency has improved. Patient denies having any fevers, chills, ear pain, sore throat, chest pain, abdominal pain or vaginal discharge. [facility] Social History Patient Tobacco Use Status: Never used Tobacco Review of Systems Const All systems reviewed & are unremarkable except as noted in HPI and below Denies chills and Denies fever(s) Eyes Reports no additional complaints ENT Reports as per HPI, Denies otalgia and Denies sore throat Card Denies chest pain, Denies rapid heart rate and Denies dyspnea Resp Reports no additional complaints, Reports cough, Denies dyspnea and Denies wheezing GI Reports as per HPI and Denies abdominal pain Reports as per HPI, Reports dysuria, Denies urinary incontinence, Denies urinary urgency and Denies vaginal discharge Musc Reports as per HPI Skin/Breast Reports system reviewed and no additional complaints, except as documented Neuro Reports as per HPI Psych Reports as per HPI Aller/Immun Reports no additional complaints and Denies wheezing Physical Exam Vital Signs: Last Vital Signs Temp 98.0 F 09/27/24 08:09 Pulse 78 09/27/24 08:09 BP 130/100 H 09/27/24 08:09 Pulse Ox 98 09/27/24 08:09 Oxygen Delivery Method Room Air 09/27/24 08:09 Patient is afebrile. Const General: cooperative, healthy appearing, comfortable, no acute distress, well developed, alert, awake and Physically active Nutritional Appearance: average body habitus Orientation/consciousness: patient oriented x3 Limitations: no limitations HEENT Head: Yes normal to inspection Ears: hearing grossly normal bilaterally, TM's normal bilaterally and EAC's normal General nose exam: Normal external nose present Face and sinus: Yes normal facial exam Mouth: Normal oral and palatal mucosa present and moist mucous membranes Throat: Yes posterior oropharynx normal (There is no edema, erythema or exudates of the posterior oropharynx.) and Yes postnasal drainage Eyes General: appearance normal, both eyes and all related structures Resp Effort & Inspection: normal respiratory effort, no audible wheezes, Actively coughing and no respiratory distress Auscultation: clear to auscultation bilaterally, no crackles, no rales, no rhonchi, no wheezes and lung sounds not diminished Cardio Rate: regular rate Rhythm: regular rhythm Skin General skin exam: no rashes or lesions noted Neuro General: patient oriented x3 Psych Appearance: grossly normal Mental Status: mental status grossly normal Insight: Good insight present (Psych) Judgement: Good judgement present (Psych) Results AMB Urinalysis, Automated UA Leukoctes 125 Navi/uL Last Edit by VIRI Melendez on 09/27/24 08: 36 UA Nitrite Negative Last Edit by VIRI Melendez on 09/27/24 08:36 UA Urobilinogen 0.2 mg/dL Last Edit by VIRI Melendez on 09/27/24 08:36 UA Protein 0 mg/dL Last Edit by VIRI Melendez on 09/27/24 08:36 UA pH 7.5 Last Edit by VIRI Melendez on 09/27/24 08:36 UA Blood 25 Kenji/uL Last Edit by VIRI Melendez on 09/27/24 08:36 UA Specific [place] 1.010 Last Edit by VIRI Melendez on 09/27/24 08:36 UA Ketone Negative Last Edit by VIRI Melendez on 09/27/24 08:36 UA Bilirubin 0 mg/dL Last Edit by VIRI Melendez on 09/27/24 08:36 UA Glucose 0 mg/dL Last Edit by VIRI Melendez on 09/27/24 08:36 Assessment & Plan Assessment & Plan (1) Dysuria: Comment: Patient's previous urine culture is reviewed, urinalysis is reviewed. Code(s): R30.0 - Dysuria Plan: Keflex 500 mg t.i.d. x7 days. (2) Cough: Comment: Patient states she tested negative for COVID-19 at home and has not had any fevers or chills. Code(s): R05.9 - Cough, unspecified Qualifiers: Cough type: acute Qualified Code(s): R05.1 - Acute cough Plan: Increase fluids daily, tea with honey and diphenhydramine at bedtime as needed. Orders: Orders AMB Urinalysis Automated Today Z13.9 - Encounter for screening, unspecified Medications: New cephalexin 500 mg PO Q8H 21 caps 0RF Coding Level of Care Code Est Pt Level 3 (62127) Diagnoses Dysuria R30.0 Acute cough R05.1 Cough type: acute Time Spent (min) 20
== END 2024-09-27 08:38 | disposition home or self-care (01) ==
PROVIDERS: Visit Provider Physician Assistant
DX: R30.0 Dysuria (principal); R05.1 Acute cough; Z13.9 Encounter for screening, unspecified

== ENCOUNTER 2024-12-30 08:47 | Outpatient (AMB) | payer MEDICARE, SELFPAY ==
[2024-12-30 08:52] VITALS: BP 120/74; PULSE 68; TEMP 36.8; O2SAT 98
--- NOTE | 2024-12-30 08:52 | AM.OFFWIN_ITS ---
Intake Vital Signs 12/30/24 08:52 Height 5 ft 7 in BP 120/74 Blood Pressure Location Lt brachial Position Sitting Pulse 68 Pulse Source Pulse Oximeter Temp 98.2 F Temp Source Oral Pulse Oximetry (%) 98 Oxygen Delivery Method Room Air Intake Visit Reasons: EP ?bladder infection Patient Tobacco Use Status: Never used Tobacco Allergies Iodinated Contrast Media [IVP DYE] Allergy (Unknown, Verified 12/30/24 08:52) HIVES IVP Dye Allergy (Unknown, Uncoded 09/27/24 08:16) Rash IVP dye Allergy (Unknown, Uncoded 09/27/24 08:16) rash, hives Do you need a note to return to daycare/school/sports/work: No HPI EP ?bladder infection HPI Details This is an 84-year-old female patient who presents to the walk-in clinic today with report of UTI symptoms. She reports a several day history of urinary burning, frequency, and urgency. Denies any fever/chills. Denies any flank pain. She states that she has had a couple of UTIs this past year and has needed a couple courses of abx to clear the infection. [facility] Social History Patient Tobacco Use Status: Never used Tobacco Review of Systems Const All systems reviewed & are unremarkable except as noted in HPI and below Physical Exam Vital Signs: Last Vital Signs Temp 98.2 F 12/30/24 08:52 Pulse 68 12/30/24 08:52 BP 120/74 12/30/24 08:52 Pulse Ox 98 12/30/24 08:52 Oxygen Delivery Method Room Air 12/30/24 08:52 Const General: cooperative, healthy appearing, comfortable and no acute distress Resp Effort & Inspection: normal respiratory effort Auscultation: clear to auscultation bilaterally Cardio Rate: regular rate Rhythm: regular rhythm General: Yes bladder normal to palpation and Yes no CVA tenderness Bimanual exam- vagina & uterus: bladder normal to palpation Back/Spine/Pelvis Back: no CVA tenderness Skin General skin exam: no rashes or lesions noted Extrem General: Yes no clubbing, cyanosis or edema Psych Appearance: grossly normal Mental Status: mental status grossly normal Speech and movement: Normal speech and movement present Results AMB Urinalysis, Automated UA Leukoctes 125 Navi/uL Last Edit by Ramon Garcia CMA on 12/30/24 09:0 6 UA Nitrite Positive Last Edit by Ramon Garcia CMA on 12/30/24 09:06 UA Urobilinogen 0.2 mg/dL Last Edit by Ramon Garcia CMA on 12/30/24 09 :06 UA Protein 30 mg/dL Last Edit by Ramon Garcia CMA on 12/30/24 09:06 UA pH 6.0 Last Edit by Ramon Garcia CMA on 12/30/24 09:06 UA Blood 200 Kenji/uL Last Edit by Ramon Garcia CMA on 12/30/24 09:06 UA Specific [place] 0 Last Edit by Ramon Garcia CMA on 12/30/24 09:06 UA Ketone Last Edit by Ramon Garcia CMA on 12/30/24 09:06 UA Bilirubin 1 mg/dL Last Edit by Ramon Garcia CMA on 12/30/24 09:06 UA Glucose 0 mg/dL Last Edit by Ramon Garcia CMA on 12/30/24 09:06 Results Reviewed Results Reviewed: Laboratory Last Values Urine pH (Auto) 6.0 12/30/24 09:05 Specific [place] (Auto) 0 12/30/24 09:05 Urine Protein (Auto) 30 mg/dL 12/30/24 09:05 Glucose (UA)(Auto) 0 mg/dL 12/30/24 09:05 Urine Blood (Auto) 200 Kenji/uL 12/30/24 09:05 Urine Nitrite (Auto) Positive 12/30/24 09:05 Urine Bilirubin (Auto) 1 mg/dL 12/30/24 09:05 Urine Urobilinogen (Auto) 0.2 mg/dL 12/30/24 09:05 Leukocyte Esterase (Auto) 125 Navi/uL 12/30/24 09:05 Assessment & Plan Assessment & Plan (1) Acute cystitis with hematuria: Code(s): N30.01 - Acute cystitis with hematuria Plan: Will start on Nitrofurantoin empirically, and send urine for culture given previous need for multiple courses of antibiotics. Will also send Pyridium. We reviewed indications, use, possible side effects of prescribed medications. Encouraged increased fluid intake. We will follow up with her once urine culture is back, which she is aware of. If symptoms worsen or new symptoms such as flank pain, fever/chills develop, she should go to the emergency department for evaluation. All questions were answered and patient verbalizes understanding and agrees to plan as discussed today. Orders: Orders AMB Urinalysis Automated Today Z13.9 - Encounter for screening, unspecified Urine Culture Today N30.01 - Acute cystitis with hematuria Medications: New phenazopyridine 200 mg PO TID PRN 6 tabs 0RF pain N30.01 - Acute cystitis with hematuria nitrofurantoin macrocrystal Take twice a day with food for 5 days. 100 mg PO BID 5 days 10 caps 0RF N39.0 - Urinary tract infection, site not specified Coding Level of Care Code Est Pt Level 4 (76547) Diagnoses Acute cystitis with hematuria N30.01
--- OUTSIDE RECORDS SUMMARY | 2024-12-30 09:18 | XMS_ITS | Patient Health Record ---
Author Organization [facility] Elise lai LiraJey Address [address] [facility] [place] [address] Care Team Providers Care Car Park Attendant Name Role Phone Nena Wong NP Primary Care Provider Divina Guajardo Unavailable [phone] Allergies Allergen (clinical drug ingredient) Drug/Non Drug [...] Problem Status W/U Status Risk Notes Problem [id number] Hammer toe of right foot (M20.41) Active confirmed Plan Of Treatment Pending Test Test Name Order Date X ray : Foot, right 3V 08/25/2023 Insurance Providers Payer Name Payer Address Payer Phone Subscriber Number Group Number Insured Name Patient Relationship to Insured Coverage Start Date Coverage End Date Medicare National Govt Svcs Inc [address] [place] [address] [id number] Poly Cary Self - patient is the insured [employer] [address] [place] [address] [id number] Poly Cary Self - patient is the insured Medical (General) History Medical History History ICD Code Cataracts covid-19 High blood pressure thyroid Measles Chicken pox Transfusions Surgical History Surgery Date(Month/Year) 1971 appendectomy 1973 oopherectomy 1973 hysterectomy, total 1978 hemorrhoidectomy 1997 cataract surgery 2021
--- OUTSIDE RECORDS SUMMARY | 2024-12-30 09:18 | XMS_ITS ---
Author Organization [facility] Address [address] [place] [address] Care Team Providers Care Materials Analyst Name Role Phone Nena Wong NP Primary Care Provider Divina Guajardo [phone] REASON FOR VISIT RACE STEWARD PPWK Entered Encounters Encounter Location Date Provider Diagnosis [facility] [address] [place] [address] 08/03/2023 Divina Desouza Plan Of Treatment No Information Progress Notes * Rashaun CARYOB:1940 (82 yo F)Acc No.[id number]:08/03/2023 Patient:?Poly Cary :1940???Age:82 Y???Sex:Female Address:[address] [place] [address] * true * Date:? Generated for Printi ng/Faxing/eTransmitting on:?12/30/2024 09:17 AM EDT
--- OUTSIDE RECORDS SUMMARY | 2024-12-30 09:18 | XMS_ITS ---
Author Organization [facility] Elise lai LiraJey Address [address] [place] [address] Care Team Providers Care Oil Developer Name Role Phone Nena Wong NP Primary Care Provider Divina Guajardo Unavailable [phone] Allergies Allergen (clinical drug ingredient) Drug/Non Drug [...] Problem Status W/U Status Risk Notes Problem [id number] Hammer toe of right foot (M20.41) Active confirmed Vital Signs Height 5 ft 5 in in 08/25/2023 Weight 123 lbs 08/25/2023 BMI 20.47 kg/m2 08/25/2023 Encounters Encounter Location Date Provider Diagnosis [facility] [address] [place] [address] 08/25/2023 Divina Desouza Hammer toe of right foot M20.41 ; Toe pain, right M79.674 and [place] of toe L84 Assessments Encounter Date Diagnosis (ICD Code) Assessment Notes Treatment Notes Treatment Clinical Notes Section Notes 08/25/2023 Hammer toe of right foot (ICD-10 - M20.41) 08/25/2023 Toe pain, right (ICD-10 - M79.674) 08/25/2023 [place] of toe (ICD-10 - L84) Plan Of [...] Poly CARY RDOB:[birth year] (82 yo F)Acc No.[id number]:08/25/2023 Progress Notes Patient:?Poly Cary Provider:?Divina Desouza DPM :1940???Age:82 Y???Sex:Female D ate:08/25/2023 Address:[address] [place], [place] [address] Pcp:Nena Wong NP Subjective: * Chief Complaints: [...] problem, Prognosis Uncertain (4)?2.?Toe pain, right - M79.674?3.?[place] of toe - L84? Plan: * Treatment: * Procedures:?Keratoma Treatment:?Parring or Cutting of Benign Hyperkeratotic Lesion(s)?( 1 Lesion ) - The Benign hyperkeratotic lesion, as described above was pared, and/or cut utilizing a sterile 15 blade, tissue nippers, and/or dremel.? * Imaging:? * ?Imaging: X ray : Foot, right 3V * Procedure Codes:?87127 X-RAY EXAM OF RIGHT FOOT 3V, Modifiers: [...] Desouza DPM Date:? Generated for Grace vela/Quincy/Iraj on:?12/30/2024 09:17 AM EDT History and Physical Notes * HPI (History [...] lesion(s) located at Medial DIPJ T9 Orthopedic FOOTWEAR EVALUATION: shoe gear p roperties exacerbate patients foot/toe deformity DIGITAL DEFORMITIES: Digital [...]
== END 2024-12-30 09:32 | disposition home or self-care (01) ==
PROVIDERS: Visit Provider Nurse Practitioner Family
DX: Z13.9 Encounter for screening, unspecified (principal); N30.01 Acute cystitis with hematuria

== ENCOUNTER 2024-12-30 08:47 | Outpatient (REF) | payer MEDICARE, SELFPAY | END 2024-12-30 08:48 | disposition home or self-care (01) | LOC: HO.LAB 08:47 | PROVIDERS: Visit Provider Nurse Practitioner Family | DX: N30.01 Acute cystitis with hematuria (principal) | CPT/HCPCS: 81003; 87086; 87088; 87186; 99212 ==

== ENCOUNTER 2025-01-05 08:05 | Outpatient (AMB) | payer MEDICARE, SELFPAY ==
--- OUTSIDE RECORDS SUMMARY | 2025-01-05 08:08 | XMS_ITS | Patient Health Record ---
Author Organization [facility] Elise lai LiraJey Address [address] [place] [address] Care Team Providers Care Assistant Store Manager Name Role Phone Nena Wong NP Primary Care Provider Divina Guajardo Unavailable [phone] Allergies Allergen (clinical drug ingredient) Drug/Non Drug [...] Problem Status W/U Status Risk Notes Problem [id number] Hammer toe of right foot (M20.41) Active confirmed Plan Of Treatment Pending Test Test Name Order Date X ray : Foot, right 3V 08/25/2023 Insurance Providers Payer Name Payer Address Payer Phone Subscriber Number Group Number Insured Name Patient Relationship to Insured Coverage Start Date Coverage End Date Medicare National Govt Svcs Inc [address] [place] [address] [id number] Poly Cary Self - patient is the insured Medex Blue Shield [address] [place] [address] [phone] [id number] Poly Cary Self - patient is the insured Medical (General) History Medical History History ICD Code Cataracts covid-19 High blood pressure thyroid Measles Chicken pox Transfusions Surgical History Surgery Date(Month/Year) 1971 appendectomy 1973 oopherectomy 1973 hysterectomy, total 1978 hemorrhoidectomy 1997 cataract surgery 2021
--- OUTSIDE RECORDS SUMMARY | 2025-01-05 08:09 | XMS_ITS ---
Author Organization [facility] Elise lai LiraVienna Address [address] [place] [address] Care Team Providers Care Community Affairs Manager Name Role Phone Nena Wong NP Primary Care Provider Divina Guajardo Unavailable [phone] Allergies Allergen (clinical drug ingredient) Drug/Non Drug [...] Problem Status W/U Status Risk Notes Problem [id number] Hammer toe of right foot (M20.41) Active confirmed Vital Signs Height 5 ft 5 in in 08/25/2023 Weight 123 lbs 08/25/2023 BMI 20.47 kg/m2 08/25/2023 Encounters Encounter Location Date Provider Diagnosis [facility] [place] [address] [place] [address] 08/25/2023 Divina Desouza Hammer toe of right foot M20.41 ; Toe pain, right M79.674 and [place] of toe L84 Assessments Encounter Date Diagnosis (ICD Code) Assessment Notes Treatment Notes Treatment Clinical Notes Section Notes 08/25/2023 Hammer toe of right foot (ICD-10 - M20.41) 08/25/2023 Toe pain, right (ICD-10 - M79.674) 08/25/2023 [place] of toe (ICD-10 - L84) Plan Of [...] Poly CARY RDOB:[birth year] (82 yo F)Acc No.[id number]:08/25/2023 Progress Notes Patient:?Poly Cary Provider:?Divina Desouza DPM :1940???Age:82 Y???Sex:Female D ate:08/25/2023 Address:[address] [place], [place] [id number] Pcp:Nena Wong NP Subjective: * Chief Complaints: [...] problem, Prognosis Uncertain (4)?2.?Toe pain, right - M79.674?3.?[place] of toe - L84? Plan: * Treatment: * Procedures:?Keratoma Treatment:?Parring or Cutting of Benign Hyperkeratotic Lesion(s)?( 1 Lesion ) - The Benign hyperkeratotic lesion, as described above was pared, and/or cut utilizing a sterile 15 blade, tissue nippers, and/or dremel.? * Imaging:? * ?Imaging: X ray : Foot, right 3V * Procedure Codes:?36683 X-RAY EXAM OF RIGHT FOOT 3V, Modifiers: [...] Desouza DPM Date:? Generated for Grace vela/Quincy/Iraj on:?01/05/2025 08:08 AM EDT History and Physical Notes * [...]
--- OUTSIDE RECORDS SUMMARY | 2025-01-05 08:09 | XMS_ITS ---
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 Generated for Printi ng/Faxing/eTransmitting on:?01/05/2025 08:08 AM EDT
--- NOTE | 2025-01-05 08:36 | AM.OFFWIN_ITS ---
Intake Vital Signs 01/05/25 08:37 Height 5 ft 7 in BP 122/70 Blood Pressure Location Lt brachial Position Sitting Pulse 70 Pulse Source Pulse Oximeter Temp 98.0 F Temp Source Oral Pulse Oximetry (%) 97 Oxygen Delivery Method Room Air Intake Visit Reasons: EP Bladder infection still? Patient Tobacco Use Status: Never used Tobacco Allergies Iodinated Contrast Media [IVP DYE] Allergy (Unknown, Verified 01/05/25 08:40) HIVES IVP Dye Allergy (Unknown, Uncoded 09/27/24 08:16) Rash IVP dye Allergy (Unknown, Uncoded 09/27/24 08:16) rash, hives Do you need a note to return to daycare/school/sports/work: No HPI HPI Comments History of Present Illness Details 84 y/o Female patient who presents to [facility] walk [facility] with c/o Dysuria. She was treated with Macrobid on 12/30 for UTI. She does report that some symptoms went away, but still has some discomfort with urination. Denies Vaginal itching or discharge. She does have h/o Bladder Prolapse and being followed by Urology. [facility] Social History Patient Tobacco Use Status: Never used Tobacco Review of Systems Const All systems reviewed & are unremarkable except as noted in HPI and below Physical Exam Vital Signs: Last Vital Signs Temp 98.0 F 01/05/25 08:37 Pulse 70 01/05/25 08:37 BP 122/70 01/05/25 08:37 Pulse Ox 97 01/05/25 08:37 Oxygen Delivery Method Room Air 01/05/25 08:37 Const General: no acute distress Orientation/consciousness: patient oriented x3 Other: Declined Pelvic examination today. General: Yes no CVA tenderness Back/Spine/Pelvis Back: no CVA tenderness Neuro General: patient oriented x3, gait normal and moves all extremities Psych Speech and movement: Normal speech and movement present Results AMB Urinalysis, Automated UA Leukoctes 0 Navi/uL Last Edit by Ramon Garcia CMA on 01/05/25 09:00 UA Nitrite Negative Last Edit by Ramon Garcia CMA on 01/05/25 09:00 UA Urobilinogen 0.2 mg/dL Last Edit by Ramon Garcia CMA on 01/05/25 09 :00 UA Protein 0 mg/dL Last Edit by Ramon Garcia, KEYSHAWN on 01/05/25 09:00 UA pH 6.0 Last Edit by Ramon Garcia, KEYSHAWN on 01/05/25 09:00 UA Blood 25 Kenji/uL Last Edit by Ramon Garcia, KEYSHAWN on 01/05/25 09:00 UA Specific [place] 1.015 Last Edit by Ramon Garcia, KEYSHAWN on 01/05/25 09:00 UA Ketone Negative Last Edit by Ramon Garcia, KEYSHAWN on 01/05/25 09:00 UA Bilirubin 0 mg/dL Last Edit by Ramon Garcia, KEYSHAWN on 01/05/25 09:00 UA Glucose 0 mg/dL Last Edit by Ramon Garcia, KEYSHAWN on 01/05/25 09:00 Assessment & Plan Assessment & Plan (1) Dysuria: Comment: Patient's previous urine culture is reviewed, urinalysis is reviewed. Pt was Treated on 12/30 with Macrobid. Urinalysis in Office 01/15 Negative. Code(s): R30.0 - Dysuria Plan: DDx's: Vaginal Yeast vs Vaginal BV Rapid Urinalysis negative. Ordered Diflucan for possible Yeast infection. Hydrate well with fluids. H/o Bladder Prolapse - managed by Urology. Please f/u with Urology. Coding Level of Care Code Est Pt Level 4 (34016) Diagnoses Dysuria R30.0 Time Spent (min) 20
[2025-01-05 08:37] VITALS: BP 122/70; PULSE 70; TEMP 36.7; O2SAT 97
== END 2025-01-05 09:09 | disposition home or self-care (01) ==
PROVIDERS: Visit Provider Nurse Practitioner Family
DX: Z13.9 Encounter for screening, unspecified (principal); R30.0 Dysuria

== ENCOUNTER → 2025-01-05 08:05 | Outpatient (BNVA) | payer MEDICARE, SELFPAY | PROVIDERS: Visit Provider Nurse Practitioner Family | DX: R03.0 Elevated blood-pressure reading, without diagnosis of hypertension (principal) | CPT/HCPCS: 81003; 99212 ==

== ENCOUNTER 2025-01-11 08:10 | Outpatient (AMB) | payer MEDICARE, SELFPAY ==
--- OUTSIDE RECORDS SUMMARY | 2025-01-11 08:14 | XMS_ITS | Patient Health Record ---
Author Organization [facility] Elise lai LiraJey Address [address] [facility] [place] [address] Care Team Providers Care Canal Tender Name Role Phone Nena Wong NP Primary Care Provider Divina Guajardo Unavailable [phone] Allergies Allergen (clinical drug ingredient) Drug/Non Drug [...] Problem Status W/U Status Risk Notes Problem [id number] Hammer toe of right foot (M20.41) Active confirmed Plan Of Treatment Pending Test Test Name Order Date X ray : Foot, right 3V 08/25/2023 Insurance Providers Payer Name Payer Address Payer Phone Subscriber Number Group Number Insured Name Patient Relationship to Insured Coverage Start Date Coverage End Date Medicare National Govt Svcs Inc [address] [place] [address] [id number] Poly Cary Self - patient is the insured Med[employer] Blue [employer] [address] [place] [address] [id number] Poly Cary Self - patient is the insured Medical (General) History Medical History History ICD Code Cataracts covid-19 High blood pressure thyroid Measles Chicken pox Transfusions Surgical History Surgery Date(Month/Year) 1971 appendectomy 1973 oopherectomy 1973 hysterectomy, total 1978 hemorrhoidectomy 1997 cataract surgery 2021
--- OUTSIDE RECORDS SUMMARY | 2025-01-11 08:15 | XMS_ITS ---
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 Generated for Printi ng/Faxing/eTransmitting on:?01/11/2025 08:14 AM EDT
--- OUTSIDE RECORDS SUMMARY | 2025-01-11 08:15 | XMS_ITS ---
Author Organization [facility] Elise lai LiraBenton Address [address] [place] [address] Care Team Providers Care Multimedia Teacher Name Role Phone Nena Wong NP Primary Care Provider Divina Guajardo Unavailable [phone] Allergies Allergen (clinical drug ingredient) Drug/Non Drug [...] Problem Status W/U Status Risk Notes Problem [id number] Hammer toe of right foot (M20.41) Active confirmed Vital Signs Height 5 ft 5 in in 08/25/2023 Weight 123 lbs 08/25/2023 BMI 20.47 kg/m2 08/25/2023 Encounters Encounter Location Date Provider Diagnosis [facility] [place] [address] [place] [address] 08/25/2023 Divina Desouza Hammer toe of right foot M20.41 ; Toe pain, right M79.674 and [place] of toe L84 Assessments Encounter Date Diagnosis (ICD Code) Assessment Notes Treatment Notes Treatment Clinical Notes Section Notes 08/25/2023 Hammer toe of right foot (ICD-10 - M20.41) 08/25/2023 Toe pain, right (ICD-10 - M79.674) 08/25/2023 [place] of toe (ICD-10 - L84) Plan Of [...] Poly CARY RDOB:[birth year] (82 yo F)Acc No.[id number]:08/25/2023 Progress Notes Patient:?Poly Cary Provider:?Divina Desouza DPM :1940???Age:82 Y???Sex:Female D ate:08/25/2023 Address:[address] [place], [place] [id number] Pcp:Nena Wong NP Subjective: * Chief Complaints: [...] problem, Prognosis Uncertain (4)?2.?Toe pain, right - M79.674?3.?[place] of toe - L84? Plan: * Treatment: * Procedures:?Keratoma Treatment:?Parring or Cutting of Benign Hyperkeratotic Lesion(s)?( 1 Lesion ) - The Benign hyperkeratotic lesion, as described above was pared, and/or cut utilizing a sterile 15 blade, tissue nippers, and/or dremel.? * Imaging:? * ?Imaging: X ray : Foot, right 3V * Procedure Codes:?54330 X-RAY EXAM OF RIGHT FOOT 3V, Modifiers: [...] Desouza DPM Date:? Generated for Grace vela/Quincy/Iraj on:?01/11/2025 08:15 AM EDT History and Physical Notes * [...]
[2025-01-11 08:18] VITALS: BP 120/80; PULSE 70; TEMP 36.4; O2SAT 92
--- NOTE | 2025-01-11 08:18 | AM.OFFWIN_ITS ---
Intake Vital Signs 01/11/25 08:18 Weight 126 lb BP 120/80 Blood Pressure Location Lt brachial Position Sitting Pulse 70 Pulse Source Pulse Oximeter Temp 97.5 F Temp Source Oral Pulse Oximetry (%) 92 Oxygen Delivery Method Room Air Intake Visit Reasons: EP ?UTI Intake Note: Patient here for burning on urination and very small blood clots that has been present for a couple of days. Patient Tobacco Use Status: Never used Tobacco Allergies Iodinated Contrast Media [IVP DYE] Allergy (Unknown, Verified 01/11/25 08:18) HIVES IVP Dye Allergy (Unknown, Uncoded 01/11/25 08:18) Rash IVP dye Allergy (Unknown, Uncoded 01/11/25 08:18) rash, hives Do you need a note to return to daycare/school/sports/work: No HPI HPI Comments History of Present Illness Details History of Present Illness - The patient is an 84-year-old female p resenting with a urinary tract infection exhibiting symptoms of burning during urination and increased frequency. - Symptoms have relapsed despite a previ ous perceived resolution as per UA last week however pt was still symptomatic, featuring intense nocturnal burning and blood specks in urine. - In August, the patient required mult iple antibiotic courses, successfully resolved with cefuroxime in the past. - No fever or back pain noted; symptomat ology is primarily urinary. - Past medical history includes complica tions related to a prolapsed bladder and recurrent hemorrhoids. - Patient is very active and exercises d aily Physical Exam General: Cooperative, healthy appearing, comfortable, no acute distress and well developed Orientation: Patient oriented x3 Limitations: No limitations Head: Normal to inspection Ears: Hearing grossly normal bilaterally Nose: Normal External nose present Face and sinus: Normal facial exam Eyes: Appearance normal, both eyes and all related structures Neck: Normal visual inspection and Yes full ROM Respiratory: Normal respiratory effort and able to speak in complete sentences. Skin: No rashes or lesions noted Neuro: Patient oriented x3 Extremities: Normal to inspection [facility] Social History Patient Tobacco Use Status: Never used Tobacco Review of Systems Const All systems reviewed & are unremarkable except as noted in HPI and below Physical Exam Vital Signs: Last Vital Signs Temp 97.5 F 01/11/25 08:18 Pulse 70 01/11/25 08:18 BP 120/80 01/11/25 08:18 Pulse Ox 92 01/11/25 08:18 Oxygen Delivery Method Room Air 01/11/25 08:18 Results AMB Urinalysis, Automated UA Leukoctes 500 Navi/uL Last Edit by VIRI Melendez on 01/11/25 08: 35 UA Nitrite Positive Last Edit by Jordy Couch [facility] on 01/11/25 08:35 UA Urobilinogen 8 mg/dL Last Edit by Jordy Couch [facility] on 01/11/25 08: 35 UA Protein 300 mg/dL Last Edit by Jordy Couch [facility] on 01/11/25 08:35 UA pH 5.0 Last Edit by Jordy Couch [facility] on 01/11/25 08:35 UA Blood 200 Kenji/uL Last Edit by Jordy Couch [facility] on 01/11/25 08:35 UA Specific [place] 1.030 Last Edit by oJrdy Couch [facility] on 01/11/25 08:35 UA Ketone Positive Last Edit by Jordy Couch [facility] on 01/11/25 08:35 UA Bilirubin 4 mg/dL Last Edit by Jordy Couch [facility] on 01/11/25 08:35 UA Glucose 500 mg/dL Last Edit by Jordy Couch [facility] on 01/11/25 08:35 Assessment & Plan Assessment & Plan (1) UTI (urinary tract infection): Code(s): N39.0 - Urinary tract infection, site not specified Qualifiers: Urinary tract infection type: acute cystitis Hematuria presence: with hematuria Qualified Code(s): N30.01 - Acute cystitis with hematuria Plan: UA 3+ leuks, pos nitrites, infection likey never cleared as JOSSIE is high for Macrobid on last culture. The patient presents with a recurrent urinary tract infection, for which cefuroxime has been prescribed, given its prior efficacy a nd reduced risk of tendinopathy compared to ciprofloxacin. Macrobid is deemed less effective, and a urine culture will confirm the organism's susceptibility to guide treatment. The patient's exercise regimen warrants caution against certain antibiotics (Cipro). Follow-up and monitoring for infection resolution are implicit upon therapy completion. Patient was informed and verbally consented to the use of an ambient scribe for clinic note documentation during this visit. Orders: Orders 2 AMB Urinalysis Automated Today Z13.9 - Encounter for screening, unspecified Urine Culture Today N39.0 - Urinary tract infection, site not specified Medications: New cefuroxime axetil 500 mg PO Q12H 10 tabs 0RF Coding Level of Care Code New Pt Level 3 (98680) Diagnoses Acute cystitis with hematuria N30.01 Urinary tract infection type: acute cystitis Hematuria presence: with hematuria
== END 2025-01-11 09:01 | disposition home or self-care (01) ==
PROVIDERS: Visit Provider Physician Assistant
DX: N30.01 Acute cystitis with hematuria (principal)

== ENCOUNTER 2025-01-11 08:10 | Outpatient (REF) | payer MEDICARE, SELFPAY | END 2025-01-11 08:11 | disposition home or self-care (01) | LOC: HO.LAB 08:10 | DX: N30.01 Acute cystitis with hematuria (principal) | CPT/HCPCS: 87086 ==

== ENCOUNTER 2025-04-21 13:31 | Outpatient (REF) | payer MEDICARE, SELFPAY | END 2025-04-21 13:32 | disposition home or self-care (01) | LOC: HO.LAB 13:31 | PROVIDERS: Visit Provider Physician Assistant | DX: N30.01 Acute cystitis with hematuria (principal); B96.20 Unspecified Escherichia coli [E. coli] as the cause of diseases classified elsewhere; R30.9 Painful micturition, unspecified; R35.0 Frequency of micturition; Z13.9 Encounter for screening, unspecified | CPT/HCPCS: 81003; 87086; 87088; 87186; 99212 ==

== ENCOUNTER 2025-04-21 13:31 | Outpatient (AMB) | payer MEDICARE, SELFPAY ==
--- OUTSIDE RECORDS SUMMARY | 2025-04-21 13:33 | XMS_ITS | Clinical Summary ---
Author Organization [address] [facility] Address [address] [place] [address] Phone Care Team Providers Care Production Supervisor Off Shift Name Role Phone Unavailable Primary Care Provider Unavailabl e Encounters Date Type Department Care Team Description 03/10/2025 Lab Requisition [facility] - Main Lab [address] [facility] [place] [address] Ken Thompson MD Pyuria from Last 3 Months Social History Tobacco Use Types Packs/Day Years Used Date Smoking Tobacco: Never Assessed Comments Unknown Sex and Gender Information Value Date Recorded Sex Assigned at Not on file Legal Sex Female 6:45 PM EDT Gender Identity Not on file Sexual Orientation Not on file Plan of Treatment Health Maintenance Due Date Last Done Comments DTaP,Tdap,and Td Vaccines (1 - Tdap) 1961 Pneumococcal Vaccine: 50+ Ye ars (1 of 1 - PCV) 1992 Zoster Vaccines (1 of 2) 1992 RSV Immunization Adult Patie nts (1 - 1-dose 75+ series) 2017 COVID-19 Vaccine (1 - 2023-2 5 season) 2024 Depression Screening 09/28/2024 Falls Risk Assessment 03/11/2025 Medicare Annual Wellness Visit 03/11/2025 Osteoporosis Screening (Bone Density Screening) 03/11/2025 Social Influencers of Health Screening 03/11/2025 Influenza Vaccine (#1) 2025 HIB Vaccines Aged Out No longer eligi ble based on patient's age to complete this topic HPV Vaccines Aged Out No longer eligi ble based on patient's age to complete this topic Hepatitis A Vaccines Aged Out No long er eligible based on patient's age to complete this topic Hepatitis B Vaccines Aged Out No long er eligible based on patient's age to complete this topic IPV Vaccines Aged Out No longer eligi ble based on patient's age to complete this topic MMR Vaccines Aged Out No longer eligi ble based on patient's age to complete this topic Meningococcal ACWY Vaccine Aged Out N o longer eligible based on patient's age to complete this topic Meningococcal B Vaccine Aged Out No l onger eligible based on patient's age to complete this topic RSV Immunization Patients Un kota 20 months Aged Out No longer eligible b ased on patient's age to complete this topic Varicella Vaccines Aged Out No longer eligible based on patient's age to complete this topic Procedures Procedure Name Priority Date/Time Associated Diagnosis Comments CULTURE URINE Routine 03/10/2025 12:00 AM EDT Pyuria from Last 3 Months Results * Culture urine (03/10/2025 12:00 AM EDT) Culture, Urine <10,000 CFU/mL gram negative bacilli, insignificant count, no further workup 03/11/2025 12:42 PM EDT [facility] Urine Urine specimen from urethra / Unknown 03/10/2025 03/10/2025 6:50 PM EDT us Ken Thompson MD LAB MICROBIOLOGY - GENERAL ORDER MONA Final Result [facility] [address] [place] [address], from Last 3 Months Insurance MEDICARE [facility]
--- OUTSIDE RECORDS SUMMARY | 2025-04-21 13:33 | XMS_ITS | Patient Health Record ---
Author Organization [facility] Elise lai LiraJey Address [address] [place] [address] Care Team Providers Care Transfer Car Operator Drier Name Role Phone Nena Wong NP Primary Care Provider Divina Guajardo Unavailable [phone] Allergies Allergen (clinical drug ingredient) Drug/Non Drug Allergy documented on EMR Reaction Allergy Type Onset Date Status Iodine hives Drug Allergy Active Reason For Referral No Information Medications Medication SIG (Take, Route, Frequency, Duration) Notes Start Date End Date Status Levothyroxine Sodium 88 MCG Oral; Duration: 90 Days Active Losartan Potassium 25 MG Oral; Duration: 30 Days Active Vitamin D3 08/03/2023 Active [...] Problem Status W/U Status Risk Notes Problem Acquired hammer toe of right foot ([id number] 105) Hammer toe of right foot (M20.41) Active confirmed Plan Of Treatment Pending Test Test Name Order Date X ray : Foot, right 3V 08/25/2023 Insurance Providers Payer Name Payer Address Payer Phone Subscriber Number Group Number Insured Name Patient Relationship to Insured Coverage Start Date Coverage End Date Medicare National Govt Svcs Inc [address] [place] [address] [id number] Poly Cary Self - patient is the insured Medex Blue Shield [address] [place] [address] [id number] Poly Cary Self - patient is the insured Medical (General) History Medical History History ICD Code Cataracts covid-19 High blood pressure thyroid Measles Chicken pox Transfusions Surgical History Surgery Date(Month/Year) 1971 appendectomy 1973 oopherectomy 1973 hysterectomy, total 1978 hemorrhoidectomy 1997 cataract surgery 2021
--- OUTSIDE RECORDS SUMMARY | 2025-04-21 13:33 | XMS_ITS | Encounter Summary ---
Author Organization [facility] Address [address] [place] [address] Phone Care Team Providers Care Heat Treating Furnace Tender Name Role Phone Garcia Leblanc MD Unavailable Nena Wong NP Unavailable [phone] Maria Teresa Ocampo CNP Primary Care Provider + Reason for Visit * Reason Onset Date Comments Labs Question 01/26/2025 Contaminated barbie ple Encounter Details Date Type Department Care Team (Late st Contact Info) Description 01/26/2025 Telephone [facility] [address] [place] [address] Maria Teresa Ocampo, GEMMA [address] [facility], [address] [place] [address] [email or web address] Labs Question (Contaminated sample) Social History Tobacco Use Types Packs/Day Years Used Date Smoking Tobacco: Former Cigarettes 0.8 20 1 - 07/10/1980 Smokeless Tobacco: Never Alcohol Use Standard Drinks/Week Comments Yes 3 (1 standard drink = 0.6 oz pure alcohol) socially-3 glasses of white wine Education Answer Date Recorded Are you interested in more education? Not on niels e 01/23/2023 Are you concerned about learning? Not on file 01/23/2023 No 01/23/2023 No 01/23/2023 Digital Access Answer Date Recorded No 02/23/2023 No 02/23/2023 Reliable internet access at home? Not on file 02/23/2023 Device with a working camera? Not on file Intimate Partner Violence Answer Date R ecorded Denied Basic Needs Not on file 02/10/2024 In the past 12 months have y ou been in a relationship with a person who hurts, threatens, or tries to control you? No 02/10/2024 Worried food would run out Not on file 02/09 In the past 12 months have y ou been in a relationship with a person who hurts, threatens, or tries to control you? No 02/10/2024 Comments Unknown Sex and Gender Information Value Date Recorded Sex Assigned at Not on file Legal Sex Female 10:10 PM EDT Gender Identity Not on file Sexual Orientation Not on file documented as of this encounter Progress Notes * uJanita Webb - 01/26/2025 1:56 PM EDT Pt called stating that the culture she had done yesterday was contaminated and is asking if she needs to redo .please contact and advise Central Support Pump Servicer Helper (Please do not reply to this user; this inbox is not monitored.) Thank you. documented in this encounter Plan of Treatment Not on file documented as of this encounter Visit Diagnoses Not on filedocumented in this encounter Additional Health Concerns Assessment Noted Time PHQ-2 Depression Total Score: 0 02/10/20 24 3:02 PM EDT documented as of this encounter Care Teams Heat Treating Furnace Tender Relationship Specialty Start Date End Date Maria Teresa Ocampo CNP [address] [place] [address], [address] [place] [address] PCP - General Family Medicine 01/21/24 Garcia Leblanc MD [address] [place] [address] Historical LMR Provider 07/13/17 Nena Wong NP [address] [place] [address] [email or web address] Historical LMR Provider 07/13/17 documented as of this encounter Additional Source Comments The information contained in this document represents components of the legal health record. It is not the complete legal health record.[facility]
[2025-04-21 13:43] VITALS: BP 144/90; PULSE 85; TEMP 36.3; O2SAT 96; BMI 19.6
--- NOTE | 2025-04-21 13:43 | AM.OFFWIN_ITS ---
Intake Vital Signs 04/21/25 13:43 Height 5 ft 7 in Weight 125 lb BMI 19.6 BP 144/90 H Blood Pressure Location Lt brachial Position Sitting Pulse 85 Pulse Source Pulse Oximeter Temp 97.4 F Temp Source Oral Pulse Oximetry (%) 96 Oxygen Delivery Method Room Air Intake Visit Reasons: EP ? UTI Intake Note: presents with burning sensation with peeing and urine frequency Patient Tobacco Use Status: Never used Tobacco Allergies IVP dye Allergy (Mild, Uncoded 04/21/25 13:49) rash, hives HPI HPI Comments History of Present Illness Details History - The patient is an 84-year-old female p resenting with burning sensation and increased frequency of urination x2d. - She has a history of urinary tract inf ections, with recent episodes in December and currently, treated with nitrofurantoin previously. - The burning sensation is severe, requi ring an ice bag for relief, but there is no fever, blood in her urine, or low back pain. - The patient has a history of cystocele and hemorrhoids, which may contribute to her symptoms. - A previous urine culture showed E. col i sensitive to cefuroxime - She is awaiting a urology appointment in seven weeks. Physical Exam General: Cooperative, healthy appearing, comfortable, no acute distress and well developed Orientation: Patient oriented x3 Limitations: No limitations Head: Normal to inspection Ears: Hearing grossly normal bilaterally Face and sinus: Normal facial exam Neck: Normal visual inspection and Yes full ROM Respiratory: Normal respiratory effort and able to speak in complete sentences. Skin: No rashes or lesions noted Neuro: Patient oriented x3 [facility] Social History Patient Tobacco Use Status: Never used Tobacco Review of Systems Const All systems reviewed & are unremarkable except as noted in HPI and below Physical Exam Vital Signs: Last Vital Signs Temp 97.4 F 04/21/25 13:43 Pulse 85 04/21/25 13:43 BP 144/90 H 04/21/25 13:43 Pulse Ox 96 04/21/25 13:43 Oxygen Delivery Method Room Air 04/21/25 13:43 BMI result Body Mass Index 19.6 Results AMB Urinalysis, Automated UA Leukoctes 70 Navi/uL Last Edit by Keiko Marie MA on 04/21/25 13:59 UA Nitrite Negative Last Edit by Keiko Marie MA on 04/21/25 13:59 UA Urobilinogen 0.2 mg/dL Last Edit by Keiko Marie MA on 04/21/25 13:59 UA Protein 0 mg/dL Last Edit by Keiko Marie MA on 04/21/25 13:59 UA pH 6.0 Last Edit by Keiko Marie MA on 04/21/25 13:59 UA Blood 80 Kenji/uL Last Edit by Keiko Marie MA on 04/21/25 13:59 UA Specific Philo 1.010 Last Edit by Keiko Marie MA on 04/21/25 13:59 UA Ketone Negative Last Edit by Keiko Marie MA on 04/21/25 13:59 UA Bilirubin 0 mg/dL Last Edit by Keiko Marie MA on 04/21/25 13:59 UA Glucose 0 mg/dL Last Edit by Keiko Marie MA on 04/21/25 13:59 Assessment & Plan Assessment & Plan (1) UTI (urinary tract infection): Code(s): N39.0 - Urinary tract infection, site not specified Qualifiers: Urinary tract infection type: acute cystitis Hematuria presence: with hematuria Qualified Code(s): N30.01 - Acute cystitis with hematuria Plan: Plan Patient was informed and verbally consented to the use of an ambient scribe for clinic note documentation during this visit. Urinary Tract Infection - Cefuroxime prescribed due to previous sensitivity to E. coli. - Urine culture ordered to confirm antibiotic efficacy. - Follow-up with urology scheduled in seven weeks. Orders: Orders AMB Urinalysis Automated Today Z13.9 - Encounter for screening, unspecified Urine Culture Today N39.0 - Urinary tract infection, site not specified Medications: New cefuroxime axetil 500 mg PO Q12H 10 tabs 0RF Coding Level of Care Code New Pt Level 3 (91299) Diagnoses Acute cystitis with hematuria N30.01 Urinary tract infection type: acute cystitis Hematuria presence: with hematuria
== END 2025-04-21 14:25 | disposition home or self-care (01) ==
PROVIDERS: Visit Provider Physician Assistant
DX: N30.01 Acute cystitis with hematuria (principal)

== ENCOUNTER 2025-05-24 13:58 | Outpatient (REF) | payer MEDICARE, SELFPAY | END 2025-05-24 13:59 | disposition home or self-care (01) | LOC: HO.LAB 13:58 | PROVIDERS: Visit Provider Physician Assistant | DX: N30.01 Acute cystitis with hematuria (principal) | CPT/HCPCS: 81003; 87086; 99212 ==

== ENCOUNTER 2025-05-24 13:58 | Outpatient (AMB) | payer MEDICARE, SELFPAY ==
--- NOTE | 2025-05-24 14:04 | MHC.OFFWIV ---
Intake Vital Signs 05/24/25 14:06 Height 5 ft 7 in Weight 125 lb BMI 19.6 BP 138/90 H Blood Pressure Location Lt brachial Position Sitting Pulse 81 Pulse Source Pulse Oximeter Temp 98.3 F Temp Source Oral Pulse Oximetry (%) 94 Oxygen Delivery Method Room Air Intake Visit Reasons: EP-uti Patient Tobacco Use Status: Never used Tobacco Allergies IVP dye Allergy (Mild, Uncoded 05/24/25 14:05) rash, hives Do you need a note to return to daycare/school/sports/work: No HPI HPI Comments History of Present Illness Details History - The patient is an 84-year-old female presenting with symptoms suggestive of a urinary tract infection. - Reports burning sensation during urination, primarily at night, causing frequent awakenings. - Symptoms have persisted for over a week, with no fever or back pain reported. - History of urinary tract infections, previously treated with levofloxacin and nitrofurantoin, which were ineffective. - Using uaqr-waj-gubkuph Pyridium for symptom relief, affecting urine color - Previous kidney ultrasound was negative; history of microscopic hematuria without visible blood in urine. - History of pessary-related infection Physical Exam General: Cooperative, healthy appearing, comfortable, no acute distress and well developed Orientation: Patient oriented x3 Limitations: No limitations Head: Normal to inspection Ears: Hearing grossly normal bilaterally Face and sinus: Normal facial exam Neck: Normal visual inspection and Yes full ROM Respiratory: Normal respiratory effort and able to speak in complete sentences. Skin: No rashes or lesions noted Neuro: Patient oriented x3 [facility] Social History Patient Tobacco Use Status: Never used Tobacco Review of Systems Const All systems reviewed & are unremarkable except as noted in HPI and below Physical Exam Vital Signs: Last Vital Signs Temp 98.3 F 05/24/25 14:06 Pulse 81 05/24/25 14:06 BP 138/90 H 05/24/25 14:06 Pulse Ox 94 05/24/25 14:06 Oxygen Delivery Method Room Air 05/24/25 14:06 BMI result Body Mass Index 19.6 Results AMB Urinalysis, Automated UA Leukoctes 500 Navi/uL Last Edit by Brook Reagan CMA on 05/24/25 14:14 UA Nitrite Positive Last Edit by Brook Reagan CMA on 05/24/25 14:14 UA Urobilinogen 4 mg/dL Last Edit by Brook Reagan, KEYSHAWN on 05/24/25 14:14 UA Protein 0 mg/dL Last Edit by Brook Reagan, KEYSHAWN on 05/24/25 14:14 UA pH 6.0 Last Edit by Brook Reagan, [employer] on 05/24/25 14:14 UA Blood 80 Kenji/uL Last Edit by Brook Reagan, KEYSHAWN on 05/24/25 14:14 UA Specific Wayne 1.015 Last Edit by Brook Reagan, [employer]ION PI[employer] SET WORKER on 05/24/25 14:14 UA Ketone Positive Last Edit by Brook Reagan, KEYSHAWN on 05/24/25 14:14 UA Bilirubin 4 mg/dL Last Edit by Brook Reagan, [employer]ION PI[employer] WORKER on 05/24/25 14:14 UA Glucose 0 mg/dL Last Edit by Brook Reagan, KEYSHAWN on 05/24/25 14:14 Results Reviewed Results Reviewed: Laboratory Last Values Urine pH (Auto) 6.0 05/24/25 14:10 Specific Wayne (Auto) 1.015 05/24/25 14:10 Urine Protein (Auto) 0 mg/dL 05/24/25 14:10 Glucose (UA)(Auto) 0 mg/dL 05/24/25 14:10 Urine Ketones (Auto) Positive 05/24/25 14:10 Urine Blood (Auto) 80 Kenji/uL 05/24/25 14:10 Urine Nitrite (Auto) Positive 05/24/25 14:10 Urine Bilirubin (Auto) 4 mg/dL 05/24/25 14:10 Urine Urobilinogen (Auto) 4 mg/dL 05/24/25 14:10 Leukocyte Esterase (Auto) 500 Navi/uL 05/24/25 14:10 Assessment & Plan Assessment & Plan (1) UTI (urinary tract infection): Code(s): N39.0 - Urinary tract infection, site not specified Qualifiers: Hematuria presence: with hematuria Urinary tract infection type: acute cystitis Qualified Code(s): N30.01 - Acute cystitis with hematuria Plan: Plan Patient was informed and verbally consented to the use of an ambient scribe for clinic note documentation during this visit. 1. Urinary Tract Infection - UA with everything positive as patient to Pyridium so this and validates the urinalysis. - Start cefuroxime treatment and perform a urine culture to adjust treatment if needed. - Avoid levofloxacin due to risk of tendinitis in older adults, will send culture. - Monitor hematuria resolution after infection treatment to exclude other causes. - Consider pelvic floor therapy as a treatment option, can check with dairy laboratory technician appt in one month. Orders: Orders AMB Urinalysis Automated Today Z13.9 - Encounter for screening, unspecified Urine Culture Today N39.0 - Urinary tract infection, site not specified Medications: New cefuroxime axetil 500 mg PO Q12H 10 tabs 0RF Coding Level of Care Code New Pt Level 3 (01456) Diagnoses Acute cystitis with hematuria N30.01 Hematuria presence: with hematuria Urinary tract infection type: acute cystitis
[2025-05-24 14:06] VITALS: BP 138/90; PULSE 81; TEMP 36.8; O2SAT 94; BMI 19.6
--- OUTSIDE RECORDS SUMMARY | 2025-05-24 14:51 | XMS_ITS | Patient Health Record ---
Author Organization [facility] Elise lai [place] Address [address] [facility] [place] [address] Care Team Providers Care Tow Motor Driver Name Role Phone Nena Wong NP Primary Care Provider Divina Guajardo Unavailable [phone] Allergies Allergen (clinical drug ingredient) Drug/Non Drug [...] Problem Status W/U Status Risk Notes Problem Hammer toe of right foot (M20.41) Active confirmed Plan Of Treatment Pending Test Test Name Order Date X ray : Foot, right 3V 08/25/2023 Insurance Providers Payer Name Payer Address Payer Phone Subscriber Number Group Number Insured Name Patient Relationship to Insured Coverage Start Date Coverage End Date Medicare National [employer] [address] [place] [address] [id number] Poly [place] Self - patient is the insured [employer] [address] [place] [address] [id number] Poly Cary Self - patient is the insured Medical (General) History Medical History History ICD Code Cataracts covid-19 High blood pressure thyroid Measles Chicken pox Transfusions Surgical History Surgery Date(Month/Year) 1971 appendectomy 1973 oopherectomy 1973 hysterectomy, total 1978 hemorrhoidectomy 1997 cataract surgery 2021
--- OUTSIDE RECORDS SUMMARY | 2025-05-24 14:52 | XMS_ITS | Clinical Summary ---
Author Organization [address] [facility] Address [address] [place] [address] Phone Care Team Providers Care Grants Manager Name Role Phone Unavailable Primary Care Provider Unavailabl e Encounters Date Type Department Care Team Description 03/10/2025 Lab Requisition [facility] - Main Lab [address] [facility] [place] [address] Ken Thompson MD Pyuria from [...] no further workup 03/11/2025 12:42 PM EDT [facility] Urine Urine specimen from urethra / Unknown 03/10/2025 03/10/2025 6:50 PM EDT us Ken Thompson MD LAB MICROBIOLOGY - GENERAL ORDER MONA Final Result [facility] [address] [place] [address], from Last 3 Months Insurance MEDICARE [facility]
--- OUTSIDE RECORDS SUMMARY | 2025-05-24 14:52 | XMS_ITS | Encounter Summary ---
Author Organization [facility] Address [address] [place] [address] Care Team Providers Care Bathing Suit Maker Name Role Phone Unavailable Primary Care Provider Unavailabl e Encounter Details Date Type Department Care Team (Late st Contact Info) Description 03/10/2025 Lab Requisition [facility] - Main Lab [address] [place] [id number] Ken Thompson MD [address] [phone] Pyuria Social History Tobacco Use Types Packs/Day Years Used Date Smoking Tobacco: Never Assessed Comments Unknown Sex and Gender Information Value Date Recorded Sex Assigned at Not on file Legal Sex Female 6:45 PM EDT Gender Identity Not on file Sexual Orientation Not on file documented as of this encounter Plan of Treatment Not on file documented as of this encounter Procedures Procedure Name Priority Date/Time Associated Diagnosis Comments CULTURE URINE Routine 03/10/2025 12:00 AM EDT Pyuria documented in this encounter Results * Culture urine (03/10/2025 12:00 AM EDT) Culture, Urine <10,000 CFU/mL gram negative bacilli, insignificant count, no further workup 03/11/2025 12:42 PM EDT [facility] Urine Urine specimen from urethra / Unknown 03/10/2025 03/10/2025 6:50 PM EDT us Ken Thompson MD LAB MICROBIOLOGY - GENERAL ORDER MONA Final Result [facility] [address] [place] [address], documented in this encounter Visit Diagnoses Diagnosis Pyuria Other nonspecific finding on examination of urine documented in this encounter
--- OUTSIDE RECORDS SUMMARY | 2025-05-24 14:52 | XMS_ITS | Clinical Summary ---
Author Organization [facility] Address [address] [address] Phone Care Team Providers Care Electromechanical Engineer Name Role Phone Garcia Leblanc MD Unavailable [phone] Nena Wong NP Unavailable [phone] Maria Teresa Ocampo COUNSELOR/ART THERAPIST Primary Care Provider + Allergies Active Allergy Reactions Criticality Noted Date Comments Iodinated Contrast Media Hives 03/24/2018 IPV dye Medications ibuprofen (ADVIL,MOTRIN) 600 MG tabletIndications: prn Take 600 mg by mouth. Indications: prn 12/29/19 19 Active docusate sodium (COLACE) 100 MG capsule Take 100 mg by mouth daily. Active albuterol (PROAIR HFA) 90 mcg/actuation inhalerIndications :Mild intermittent reactive airway disease with acute exacerbation Inhale 2 puffs into the lungs every 6 (six) hours as needed for wheezing. 1 Inhaler 1 09/26/20 19 Active cholecalciferol, vitamin D3, 25 mcg (1,000 unit) capsule Take 2,000 Units by mouth daily. 12/29/19 21 Active Lactobacillus acidophilus (PROBIOTIC ORAL) Take by mouth. Active losartan (COZAAR) 25 MG tabletIndications: Essential hypertension TAKE 1 TABLET BY MOUTH EVERY DAY 90 tablet 2 10/23/19 25 Active levothyroxine (SYNTHROID, LEVOTHROID) 88 MCG tabletIndications: Acquired hypothyroidism TAKE 1 TABLET BY MOUTH EVERY MORNING. 90 tablet 3 10/24/19 25 Active predniSONE (DELTASONE) 50 MG tablet Take 1 tablet by mouth 13, 7 and 1 hour(s) before your appointment where you will be receiving IV contrast dye for your imaging study 3 tablet 01/17/20 25 Active multivitamin with minerals (DAILY VITAMIN FORMULA-MINERALS ORAL) 11/12/19 24 Active phenazopyridine (PYRIDIUM) 100 MG tabletIndications: Dysuria Take 2 tablets (200 mg total) by mouth 3 (three) times a day as needed for pain (specific location in comments). 12 tablet 01/27/20 25 Active estradioL (ESTRACE) 0.01 % (0.1 mg/gram) vaginal cream Place [address] 2 g vaginally daily for two weeks and then twice weekly. 42.5 g 03/21/20 25 Active Active Problems Problem Noted Date Diagnosed Date Screening for condition 01/16/2025 Assessment & Plan (01/16/2025 10:39 AM EDT): I ordered a A1c to further investigate her previous glucose in the urine-I will update her with the result. Hematuria, undiagnosed cause 01/16/2025 Assessment & Plan (01/16/2025 10:39 AM EDT): Poly presents for intermittent dysuria and frequency of urination-urinalysis shows blood in the urine. I will further investigate this with a CT scan of abdomen pelvis-I will update her with the result. I advised her to hydrate well. The urine was sent for culture today and I will update her with the results. Follow-up as needed. She understands and agrees. Dysuria 01/16/2025 Assessment & Plan (01/24/2025 3:31 PM EDT): UA without outright UTI. Will again send for culture. Hx or a urethral caruncle which she was previously told was not a problem. Dysuria could be secondary to symptomatic caruncle. Referral to urology per request for further management of hematuria and dysuria. Orders: Urine Culture; Future phenazopyridine (PYRIDIUM) 200 MG tablet; Take 1 tablet (200 mg total) by mouth 3 (three) times a day as needed for pain (specific location in comments). Assessment & Plan (01/16/2025 10:39 AM EDT): Poly presents for intermittent dysuria-her urinalysis today does not show a clear-cut picture of a UTI but I will send this for culture and update her with the results. I will further investigate the hematuria with the CT scan of abdomen pelvis. I wrote for Pyridium to take as needed. Follow-up as needed. She understands and agrees. Allergic reaction to contrast dye 01/16/2025 Essential hypertension 02/17/2024 Assessment & Plan (01/24/2025 3:31 PM EDT): Stable on losartan, no changes to management. Assessment & Plan (02/17/2024 1:23 PM EDT): Hypertension: Managed with Losartan 25mg daily. Blood pressure today was 134/82, which is within acceptable range. -Continue Losartan 25mg daily. 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 Referral to urology. S/P hemorrhoidectomy 10/21/2019 Osteopenia after menopause 10/21/2019 Assessment & Plan (01/24/2025 3:31 PM EDT): On vitamin d, does not tolerate calcium but does try to ensure she gets enough in her diet. Is very active and does weight bearing exercises. Female cystocele 10/21/2019 Assessment & Plan (02/17/2024 1:24 PM EDT): Pelvic Organ Prolapse: Patient has a history of pelvic organ prolapse and has previously used a pessary. No current complaints or concerns related to this condition. -No changes to current management. Acquired hypothyroidism 03/24/2018 Assessment & Plan (01/24/2025 3:31 PM EDT): TSH stable on 88 mcg synthroid. No changes to current management. Assessment & Plan (02/17/2024 1:24 PM EDT): Hypothyroidism: Last TSH was 0.92, which is on the lower end of the normal range. The patient had a recent increase in thyroid medication and is interested in rechecking levels. -Order TSH lab today. Encounters Date Type Department Care Team Description 04/24/2025 Telephone [facility] [address] [place] [address] Maria Teresa Ocampo CNP Referral (Pt is requesting a referral for Urology RETAIL CLERK female,not in [place]. ) 03/20/2025 Telephone [facility] [address] [place] [address] Maria Teresa Ocampo CNP Follow-up (Urology appointment ) from Last 3 Months Immunizations Immunization Administration Dates Next Due COVID-19 (Pre-07/20) Moderna Vaccine, Bivalent 6mo+ 06/04/2022 COVID-19 (Pre-07/20) Moderna Vaccine, mRNA, PF 11/27/2020,10/30/2020 INFLUENZA, SPLIT VIRUS, TRIV ALENT W/ PRESERVATIVE IM 08/06/2022,07/02/2021,07/14/2020,07/06,07/14/2018,07/23/2017,07/21/2016 Influenza High-Dose Quadriva lent Preservative Free IM 06/29/2023,08/06/2022 Influenza High-Dose Trivalen t Preservative Free IM 07/11/2024,07/21/2016 Influenza Quadrivalent Adjuv anted Preservative Free IM 07/02/2021,07/14/2020 Influenza Quadrivalent Prese rvative Free IM 07/06/2019,07/14/2018 Influenza Quadrivalent w/ Pr eservative IM 07/23/2017 Influenza, Unspecified Formulation 08/01/2021, Pneumococcal conjugate PCV13 01/14/2017 Pneumococcal polysaccharide PPSV23 09/04/2011 RSV Vaccine (monovalent, adjuvanted) 06/27/2024 Zoster recombinant 08/03/2023,04/20/2023 Family History Medical History Relation Comments No Known Problems Daughter CV disease Father [place] age 46 Failure to thrive Mother No Known Problems Son 1 No Known Problems Son 2 Relation Status Comments Daughter Alive Father Mother Sister Alive Son 1 Alive Son 2 Alive Social History Tobacco Use Types Packs/Day Years Used Date Smoking Tobacco: Former Cigarettes 0.8 20 1 - 07/10/1980 Smokeless Tobacco: Never Tobacco Cessation:Counseling Given: Not Answered Alcohol Use Standard Drinks/Week Comments Yes 3 [...] on file Sexual Orientation Not on file Last Filed Vital Signs Vital Sign Reading Time Taken Comments Blood Pressure 132/84 01/24/2025 2:52 PM EDT Pulse 68 01/24/2025 2:52 PM EDT Temperature 36.4 C (97.5 F) 01/24/2025 2:52 PM EDT Respiratory Rate 18 02/17/2024 12:58 PM EDT Oxygen Saturation 98% 01/24/2025 2:52 PM EDT Inhaled Oxygen Concentration - - Weight 55.8 kg (123 lb) 01/24/2025 2:52 PM EDT Height 165.1 cm (5' 5 ) 01/24/2025 2:52 PM EDT Body Mass Index 20.47 01/24/2025 2:52 PM EDT Plan of Treatment Health Maintenance Due Date Last Done Comments Adult Td,Tdap Booster 1940 COVID-19 VACCINE ( season) 2024 07/13/2023, 06/04/2022, 01/05/2022, Additional history exists DEPRESSION SCREENING 02/09/2025 02/10/2024 BLOOD PRESSURE 07/26/2025 01/24/2025 CREATININE LEVEL 10/26/2025 10/26/2024, 06/2023, 01/07/2023, Additional history exists POTASSIUM LEVEL 10/26/2025 10/26/2024, 03/28, 01/07/2023, Additional history exists TSH LEVEL 10/26/2025 10/26/2024, 01/27, 04/06/2023, Additional history exists PNEUMOCOCCAL VACCINES (50+ years) Completed 01/14/2017, 09/04/2011 OSTEOPOROSIS SCREENING INITIAL (ONE-TIME) Completed 08/13/2020, 01/14/2017 ZOSTER VACCINES Completed 08/03/2023, 04/20/2023 RSV VACCINE Completed 06/27/2024 HEPATITIS A VACCINES Aged Out No long er eligible based on patient's age to complete this topic HIB VACCINES Aged Out No longer eligi ble based on patient's age to complete this topic MENINGOCOCCAL VACCINES (ACWY) Aged Out No longer eligible based on patient's age to complete this topic MENINGOCOCCAL VACCINES (B) Aged Out N o longer eligible based on patient's age to complete this topic Medical Devices Not on file Procedures Procedure Name Priority Date/Time Associated Diagnosis Comments TSH WITH REFLEX Routine 10/26/2024 3:22 PM EST Acquired hypothyroidism BASIC METABOLIC PANEL Routine 10/26/2024 3:22 PM EST Essential hypertension OUTSIDE BONE DENSITY SCREENING Routine 08/13/2020 from Last 3 Months or Most Recently Relevant to Health Maintenance Results * TSH with reflex (10/26/2024 3:22 PM EST) Pathologist [facility] TSH 2.35 0.27 - 4.20 uIU/mL [facility] Blood 10/26/2024 3:22 PM EST 10/26/2024 3:25 PM EST Maria Teresa [place] COUNSELOR/ART THERAPIST LAB BLOOD ORDERABLES Fin al Result Performing Organization Address City/[facility]/ZIP Co de Phone Number [address] [address] * Basic metabolic panel (10/26/2024 3:22 PM EST) [facility] SODIUM 138 133 - 146 mmol/L [facility] CHLORIDE 103 96 - 108 mmol/L [facility] POTASSIUM 5.0 3.3 - 5.1 mmol/L [facility] CO2 27 21 - 35 mmol/L [facility] BUN 14 6 - 19 mg/dL [facility] CREATININE 0.50 0.5 - 1.5 mg/dL [facility] GLUCOSE 98 70 - 99 mg/dL [facility] CALCIUM 9.8 8.4 - 10.3 mg/dL [facility] EGFR 94 >59 mL/min/1.7 3m2 [facility] Comment:Estimated glomerular filtration rate calculated using the CKD-EPI refit equation. ANION GAP 13 10 - 20 mmol/L [facility] Blood 10/26/2024 3:22 PM EST 10/26/2024 3:25 PM EST us Maria Teresa [place] COUNSELOR/ART THERAPIST LAB BLOOD ORDERABLES Fin al Result Performing Organization Address City/[facility]/ZIP Co de Phone Number [address] [address] * OUTSIDE BONE DENSITY SCREENING (08/13/2020) Pathologist [facility] BONE DENSITY SCREENING - EXTERNAL osteopenia Historical Provider HEALTH MAINTENANCE Final Result from Last 3 Months or Most Recently Relevant to Health Maintenance Insurance MEDICARE PART A & B [employer] MEDEX SUPPLEMENT MEDICARE PART A & B [employer] MEDEX SUPPLEMENT MEDICARE PART A & B [employer] MEDEX SUPPLEMENT MEDICARE PART A & B [employer] MEDEX SUPPLEMENT MEDICARE PART A & B [employer] MEDEX SUPPLEMENT MEDICARE PART A & B [employer] MEDEX SUPPLEMENT MEDICARE PART A & B Member Subscriber Plan / Payer (Ef fective 2007-) Name:Poly Cary Member ID:[id number] Relation to Subscriber:Self Name:Poly Cary Subscriber ID:[id number] Payer ID:[id number] Group ID:Not on file Type:Medicare Address: [employer] [facility].[address] [id number] [facility] MEDEX SUPPLEMENT MEDICARE PART A & B [employer] MEDEX SUPPLEMENT MEDICARE PART A & B [employer] MEDEX SUPPLEMENT Care Teams Electromechanical Engineer Relationship Specialty Start Date End Date Maria Teresa Ocampo CNP [address] [place] [address] [address] [place] [address] PCP - General Family Medicine 01/21/24 Garcia Leblanc MD [address] [place] [phone] [email or web address] Historical LMR Provider 07/13/17 Nena Wong NP [address] [place] [phone] [email or web address] Historical LMR Provider 07/13/17 Additional Source Comments The information contained in this document represents components of the legal health record. It is not the complete legal health record.[facility]
== END 2025-05-24 14:44 | disposition home or self-care (01) ==
PROVIDERS: Visit Provider Physician Assistant
DX: N30.01 Acute cystitis with hematuria (principal)